=== PATIENT | male | born 1960 | race Caucasian/White ===

== ENCOUNTER 2020-01-29 23:10 | Observation (INO) | payer OTHER, SELFPAY ==
[2020-01-30] MEDS ORDERED: MORPHINE 4 MG/ML SYR ONE (00:38)
[2020-01-30 00:41] LABS: Absolute Lymphocytes (CBC) 1.8 K/uL (0.7-4.9); Basophils % 0.4 % (0-1.3); Hematocrit 46.9 % (39.6-49.0); Lymphocytes % 26.9 % (15.3-44.8); MPV 8.2 fL (7.6-11.3); RBC Red Blood Cell Count 5.19 M/uL (4.33-5.43)
[2020-01-30 00:55] LABS: Protime INR 1.03
[2020-01-30 01:07] LABS: ALT/SGPT 83 U/L (12-78); AST/SGOT 40 U/L (15-37); Albumin 3.6 g/dL (3.4-5.0); Alkaline Phosphatase 100 U/L (45-117); BUN Blood Urea Nitrogen 17 mg/dL (7-18); Bicarbonate 24 mmol/L (21-32); Bilirubin Direct 0.2 mg/dL (0-0.2); Bilirubin Total 0.6 mg/dL (0.2-1.0); Glucose Level 97 mg/dL (74-106); Magnesium 2.3 mg/dL (1.8-2.4); NT PRO-BNP 25 pg/mL (<125); Sodium Level 140 mmol/L (136-145); Troponin (Emerg Dept Use Only) < 0.02 ng/mL (0.0-0.045)
[2020-01-30] MEDS ORDERED: ACETAMINOPHEN 500 MG TAB PO PRN (03:01)
[2020-01-30] MEDS ORDERED: MORPHINE 4 MG/ML SYR IV PRN (03:01)
[2020-01-30] MEDS ORDERED: ALPRAZOLAM 0.25 MG TABLET PO PRN (03:01)
[2020-01-30] MEDS ORDERED: METOPROLOL TAR 50 MG TAB PO SCH (06:00)
[2020-01-30 06:35] LABS: HDL Cholesterol 47 mg/dL (40-60); LDL Cholesterol, Calculated 92 (<130); Troponin I < 0.02 ng/mL (0.0-0.045)
[2020-01-30] MEDS ORDERED: METOPROLOL TAR 25 MG TAB ONE (06:39)
[2020-01-30 07:50] VITALS: O2SAT 100; BMI 49.7
[2020-01-30 07:52] VITALS: BP 126/65
[2020-01-30] MEDS ORDERED: ASPIRIN EC 81 MG TAB PO ONE ×2 (08:31→08:38)
[2020-01-30] MEDS ORDERED: ENOXAPARIN 40 MG/0.4 ML SQ ONE (08:33)
--- NOTE | 2020-01-30 08:39 | EKG ---
Test Date: 2020-01-29 Test Time: 23:25:47 Associate Professor Of Art: JAYLENE MEASUREMENT RESULTS: Intervals: Rate: 78 MN: 172 QRSD: 86 QT: 360 QTc: 410 [place]: P: 37 MN: 172 QRS: 53 T: 48 INTERPRETIVE STATEMENTS: Normal sinus rhythm Low voltage QRS Cannot rule out Anterior infarct, age undetermined Abnormal ECG Compared to ECG 03/02/2015 13:47:31 Low QRS voltage now present Myocardial infarct finding now present Electronically Signed On 01-30-20 08:38:27 CDT by Girish Molina
[2020-01-30] MEDS ORDERED: ENOXAPARIN 40 MG/0.4 ML SQ SCH (09:00)
[2020-01-30] MEDS ORDERED: ASPIRIN EC 81 MG TAB PO SCH (09:00)
--- NOTE | 2020-01-30 10:43 | P.SSS ---
Patient History Date of Service: 01/31/20 Reason for admission: CP R/O ACS History of Present Illness: Patient is a 59-year-old gentleman who came to the hospital with chest discomfort. Pain was mainly in the sternal region. Patient also has some dyspnea. Patient has a history of obstructive sleep apnea. Patient denies any nausea or vomiting. Patient denies any diaphoresis. Patient has some pain on deep inspiration. Patient denies any reflux. Patient will be admitted to the hospital for further evaluation. Will get cardiac evaluation. Will do serial troponins and EKG. Further evaluation per Cardiology recommendations. Allergies Penicillins Allergy (Mild, Verified 01/30/20 06:17) Hives Home Medications: Aspirin [Ecotrin 81 MG] 81 mg PO DAILY #30 tablet.dr 01/30/20 Atorvastatin Calcium [Lipitor] 40 mg PO DAILY #30 tablet 01/30/20 Azithromycin [Zithromax] 250 mg PO ZPAK #1 annabelle 01/30/20 Prednisone [Sterapred Ds] 10 mg PO DAILY #1 tab.ds.pk 01/30/20 - Past Medical/Surgical History Has patient received pneumonia vaccine in the past: No Diabetic: No -: Kidney cancer (has had kidney removed) -: kidney removal - Family History Family History: Reviewed- Non-Contributory - Social History Smoking Status: Never smoker Alcohol use: No CD- Drugs: No Caffeine use: No Place of Residence: Home Review of Systems 10-point ROS is otherwise unremarkable Physical Examination - Vital Signs Temperature: 99 F Blood Pressure: 126/65 Pulse: 62 Respirations: 18 Pulse Ox (%): 100 - Physical Exam General: Alert, In no apparent distress, Oriented x3, Obese HEENT: Atraumatic, PERRLA, Mucous membr. moist/pink, EOMI, Sclerae nonicteric Neck: Supple, 2+ carotid pulse no bruit, No LAD, Without JVD or thyroid abnormality Respiratory: Clear to auscultation bilaterally, Normal air movement Cardiovascular: Regular rate/rhythm, Normal S1 S2, No murmurs Gastrointestinal: Normal bowel sounds, Soft and benign, Non-distended, No tenderness Musculoskeletal: No clubbing, No swelling, No tenderness Integumentary: No rashes Neurological: Normal gait, Normal speech, Normal strength at 5/5 x4 extr, Normal tone, Sensation intact, Cranial nerves 3-12 intact, Normal affect Lymphatics: No axilla or inguinal lymphadenopathy - Studies Laboratory Data (last 24 hrs) 01/30/20 00:28: PT 12.1, INR 1.03 01/30/20 00:28: WBC 6.8, Hgb 16.1, Hct 46.9, Plt Count 145 L 01/30/20 00:28: Sodium 140, Potassium 4.0, BUN 17, Creatinine 1.15, Glucose 97, Magnesium 2.3, Total Bilirubin 0.6, AST 40 H, ALT 83 H, Alkaline Phosphatase 100 Treatment Summary: Patient troponins and EKG have been unremarkable. Patient was seen by Cardiology and outpatient follow-up was recommended. It was felt patient may have some upper respiratory symptoms with some pain on inspiration related to of pleuritic chest pain. Chest x-ray has been unremarkable. Continue with steroids and anti-inflammatories. Also will give antibiotic for possible bronchitis. Patient would need outpatient stress test and echocardiogram. At this time patient is stable for discharge home with outpatient follow-up. - Disposition Discharge Date: 01/30/20 Disposition: ROUTINE DISCHARGE Condition: GOOD Patient Discharge Instructions: OK TO DC IV AND DC HOME. please call in prescriptions to pharmacy. FOLLOW-UP WITH PRIMARY CARE PROVIDER IN 1-2 WEEKS. FOLLOW-UP WITH CARDIOLOGY IN 1-2 WEEKS. RETURN TO THE ER IF symptoms worsens. CALL DR. ZAMBRANO AT [phone] IF ANY QUESTIONS REGARDING HOSPITAL STAY. PLEASE CALL THE FLOOR AT [phone] IF ANY MEDICATION OR NURSING QUESTIONS. Diet: AHA Activity: Fall precautions Critical Care: No Time Spent Managing Pts Care (In Minutes): 45
--- NOTE | 2020-01-30 11:02 | RAD REPORT ---
EXAM DESCRIPTION: RAD - Chest Single View - 01/30/2020 12:14 am CLINICAL HISTORY: CHEST PAIN Chest pain. COMPARISON: Abdomen 1 View (KUB) dated 02/10/2018; CHEST PA AND LAT 2 VIEW dated 01/30/2015; ABDOMEN 1 VIEW KUB dated 08/24/2014; CHEST PA AND LAT 2 VIEW dated 06/06/2014 FINDINGS: Portable technique limits examination quality. The lungs are mildly underinflated but grossly clear. The heart is mildly enlarged in size. No displa kimberly fractures. IMPRESSION: No acute intrathoracic process suspected.
--- NOTE | 2020-01-30 11:11 | ER ---
Nurse's Notes [facility] Name: Domo Castro Age: 59 yrs Sex: Male : 1960 Arrival Date: 01/29/2020 Time: 23:15 Bed 25 Private MD: Diagnosis: Chest pain, unspecified Presentation: 01/28 23:24 Chief complaint: Chief complaint: Patient states: Left upper back pain that radiates ll1 into left shoulder intermittently for 2 days. Reports shocking jolt of pain at times. Notices pain with deep breathing. Cough lingering on since September. No fever. Also, left ear pain and swelling for 1 week. 23:25 Coronavirus screen: Proceed with normal triage. Patient reports a cough. Patient denies ll1 shortness of breath or difficulty breathing. Patient denies measured and/or subjective temperature greater than 100.4F prior to today's visit. Patient denies travel on a cruise ship or to a country the [facility] currently lists as an affected area. Patient denies contact with known and/or suspected case of COVID-19. Ebola Screen: Patient denies travel to an Ebola-affected area in the 21 days before illness onset. Initial Sepsis Screen: Does the patient meet any 2 criteria? No. Patient's initial sepsis screen is negative. Does the patient have a suspected source of infection? No. Patient's initial sepsis screen is negative. Risk Assessment: Do you want to hurt yourself or someone else? Patient reports no desire to harm self or others. Onset of symptoms was January 27, 2020. 23:25 Method Of Arrival: Ambulatory ll1 23:25 Acuity: ADOLPH 3 ll1 Historical: - Allergies: 23:28 PENICILLINS; ll1 - PMHx: 23:28 kidney CA-kidney removed; ll1 - Immunization history:: Adult Immunizations up to date. - Social history:: Smoking status: Patient denies any tobacco usage or history of. Patient uses alcohol, but reports only rare drinking. only on a social basis. Patient/guardian denies using street drugs. - Family history:: Mother has/had heart disease. Screenin/10 00:00 Abuse screen: Denies threats or abuse. Nutritional screening: No deficits noted. lp1 Tuberculosis screening: No symptoms or risk factors identified. Fall Risk None identified. Assessment: 01/28 23:30 General: Appears in no apparent distress. uncomfortable, Behavior is calm, cooperative, lp1 appropriate for age. Pain: Complains of pain in left clavicle and anterior aspect of left upper chest Pain radiates to anterior aspect of left shoulder Quality of pain is described as shooting, Pain began 2-3 days ago. Pain: Aggravated by deep breathing. Neuro: Neuro: Level of Consciousness is awake, alert, obeys commands, Oriented to person, place, time, situation. Cardiovascular: Denies lightheadedness, nausea, palpitations, Patient's skin is warm and dry. Rhythm is sinus rhythm. Respiratory: Airway is patent Respiratory effort is even, unlabored, Respiratory pattern is regular, symmetrical. GI: No signs and/or symptoms were reported involving the gastrointestinal system. : No signs and/or symptoms were reported regarding the genitourinary system. Derm: Skin is pink, warm \T\ dry. Vital Signs: 23:25 BP 159 / 94; Pulse 83; Resp 19; Temp 97.2; Pulse Ox 100% ; Pain 0/10; ll1 01/29 00:51 BP 153 / 76; Pulse 72; Resp 18; Pulse Ox 99% on R/A; tl2 03:00 BP 139 / 80; Pulse 75; Resp 18; Pulse Ox 99% on R/A; lp1 04:51 BP 132 / 78; Pulse 72; Resp 18; Pulse Ox 99% on R/A; lp1 07:06 BP 126 / 65; Pulse 74; Resp 18; Pulse Ox 100% on CPAP; 4 ED Course: 01/28 23:15 Patient arrived in ED. cf2 23:21 German Tolbert MD is Attending Physician. mh7 23:27 Triage completed. ll1 23:28 Arm band placed on Patient placed in an exam room, on a stretcher. ll1 01/29 00:00 Patient has correct armband on for positive identification. Placed in gown. Bed in low lp1 position. Call light in reach. Side rails up X 1. threat monitoring analyst on. Pulse ox on. NIBP on. 00:00 No provider procedures requiring assistance completed. Patient maintains SpO2 lp1 saturation greater than 95% on room air. 00:05 Inserted saline lock: 20 gauge in right upper arm, using aseptic technique. placed by oanh Richey RN. 00:14 XRAY Chest (1 view) In Process Unspecified. EDMS 00:50 Mame Nath, RN is Primary Nurse. tl2 01:55 Fidel Lott MD is Hospitalizing Provider. [facility] Administered Medications: 00:50 Drug: morphine 4 mg Route: IVP; Site: right upper arm; tl2 01:40 Follow up: Response: No adverse reaction; Pain is decreased; RASS: Alert and Calm (0) lp1 Outcome: 01:56 Decision to Hospitalize by Provider. 7 05:00 Admitted to ER Hold. Please see [facility] for further documentation. lp1 05:00 Condition: stable 11:10 Patient left the ED. Signatures: Dispatcher [employer] EDMS Norma Caal RN RN 1 Roxanna Walker RN RN Mame Nath RN RN tl2 Oamyra Girard 2 Thanh Silverman 4 Basilia Mai RN RN 1 German Tolbert MD MD [facility] Corrections: (The following items were deleted from the chart) 01/28 23:27 23:24 Chief complaint: ll1 ll1 23:29 23:24 Chief complaint: Patient states: Left upper back pain that radiates into left ll1 shoulder intermittently for 2 days. Reports shocking jolt of pain at times. Notices pain with deep breathing. Cough lingering on since September. No fever. Chief complaint: Patient states: Left upper back pain that radiates into left shoulder intermittently for 2 days. Reports shocking jolt of pain at times. Notices pain with deep breathing. Cough lingering on since September. No fever. ll1
--- NOTE | 2020-01-30 11:11 | EDPHYS ---
Physician Documentation [facility] Name: Domo Castro Age: 59 yrs Sex: Male : 1960 Arrival Date: 01/29/2020 Time: 23:15 Bed 25 Private MD: ED Physician German Tolbert HPI: 01/28 23:37 This 59 yrs old Male presents to ER via Ambulatory with complaints of mh7 Shoulder Pain, Back Pain. 23:38 This 59 yrs old Male presents to ER via Ambulatory with complaints of Back mh7 pain, Chest pain. 23:38 The patient or guardian reports chest pain that is located primarily in the anterior mh7 chest wall, left. Onset: yesterday. The pain radiates to left back. Associated signs and symptoms: Pertinent positives: shortness of breath, Pertinent negatives: abdominal pain, cough, diaphoresis, dizziness, headache, lower extremity pain, lower extremity swelling, lightheadedness, nausea, near syncope, palpitations, recent travel, syncope, vomiting. The chest pain is described as stabbing. Duration: The patient or guardian reports multiple episodes, that are intermittent, that wax and wane. Modifying factors: The symptoms are alleviated by nothing. the symptoms are aggravated by nothing. Severity of pain: At its worst the pain was moderate today, in the emergency department the pain is unchanged. Historical: - Allergies: 23:28 PENICILLINS; ll1 - PMHx: 23:28 kidney CA-kidney removed; ll1 - Immunization history:: Adult Immunizations up to date. - Social history:: Smoking status: Patient denies any tobacco usage or history of. Patient uses alcohol, but reports only rare drinking. only on a social basis. Patient/guardian denies using street drugs. - Family history:: Mother has/had heart disease. ROS: 23:40 Constitutional: Negative for fever, chills, and weight loss, Eyes: Negative for injury, mh7 pain, redness, and discharge, ENT: Negative for injury, pain, and discharge, Neck: Negative for injury, pain, and swelling, Abdomen/GI: Negative for abdominal pain, nausea, vomiting, diarrhea, and constipation, : Negative for injury, bleeding, discharge, and swelling, MS/Extremity: Negative for injury and deformity, Skin: Negative for injury, rash, and discoloration, Neuro: Negative for headache, weakness, numbness, tingling, and seizure, Psych: Negative for depression, anxiety, suicide ideation, homicidal ideation, and hallucinations, Allergy/Immunology: Negative for hives, rash, and allergies, Endocrine: Negative for neck swelling, polydipsia, polyuria, polyphagia, and marked weight changes, Hematologic/Lymphatic: Negative for swollen nodes, abnormal bleeding, and unusual bruising. Exam: 23:40 Constitutional: This is a well developed, well nourished patient who is awake, alert, mh7 and in no acute distress. Head/Face: Normocephalic, atraumatic. Eyes: Pupils equal round and reactive to light, extra-ocular motions intact. Lids and lashes normal. Conjunctiva and sclera are non-icteric and not injected. Cornea within normal limits. Periorbital areas with no swelling, redness, or edema. ENT: Nares patent. No nasal discharge, no septal abnormalities noted. Tympanic membranes are normal and external auditory canals are clear. Oropharynx with no redness, swelling, or masses, exudates, or evidence of obstruction, uvula midline. Mucous membranes moist. Neck: Trachea midline, no thyromegaly or masses palpated, and no cervical lymphadenopathy. Supple, full range of motion without nuchal rigidity, or vertebral point tenderness. No Meningismus. Chest/axilla: Normal chest wall appearance and motion. Nontender with no deformity. No lesions are appreciated. Abdomen/GI: Soft, non-tender, with normal bowel sounds. No distension or tympany. No guarding or rebound. No evidence of tenderness throughout. Back: No spinal tenderness. No costovertebral tenderness. Full range of motion. Skin: Warm, dry with normal turgor. Normal color with no rashes, no lesions, and no evidence of cellulitis. Neuro: Awake and alert, GCS 15, oriented to person, place, time, and situation. Cranial nerves II-XII grossly intact. Motor strength 5/5 in all extremities. Sensory grossly intact. Cerebellar exam normal. Normal gait. 23:40 Cardiovascular: Rate: normal, Rhythm: regular, Pulses: no pulse deficits are appreciated, Heart sounds: normal, normal S1and S2, Edema: pedal edema, that is mild, JVD: is not appreciated. 23:40 ECG was reviewed by the Attending Physician. 23:40 Respiratory: the patient does not display signs of respiratory distress, Respirations: normal, Breath sounds: are clear throughout, Respiratory rate: Normal Vital Signs: 23:25 BP 159 / 94; Pulse 83; Resp 19; Temp 97.2; Pulse Ox 100% ; Pain 0/10; ll1 01/29 00:51 BP 153 / 76; Pulse 72; Resp 18; Pulse Ox 99% on R/A; tl2 03:00 BP 139 / 80; Pulse 75; Resp 18; Pulse Ox 99% on R/A; lp1 04:51 BP 132 / 78; Pulse 72; Resp 18; Pulse Ox 99% on R/A; lp1 07:06 BP 126 / 65; Pulse 74; Resp 18; Pulse Ox 100% on CPAP; dh4 MDM: 01/28 23:26 Patient medically screened. [facility] 01/29 01:56 Differential diagnosis: acute myocardial infarction, coronary artery disease chest wall [facility] pain, pneumonia, unstable angina. HEART Score: History: Moderately Suspicious (1), ECG: Non specific repolarization disturbance / LBTB / PM (1), Age: > 45 and < 65 years (1), Risk Factors: 1 or 2 risk factors (1), Troponin: < or = 1 x Normal Limit (0), Total Score = 4. Data reviewed: vital signs, nurses notes, lab test result(s), cardiac enzymes, troponin i, CBC, EKG, radiologic studies, plain films. Data interpreted: patient monitor: rate is 72 beats/min, rhythm is normal sinus rhythm, Pulse oximetry: on is 99 %. Interpretation: normal. ED course: Feels better, NAD, VSS, no focal neurological deficits. Currently no chest pain or SOB. Discussed all test results and admission for further care and evaluation. Discussed with and admitted to Dr. Lott.. 01/28 23:35 Order name: Basic Metabolic Panel; Complete Time: 01:42 [facility] 01/29 01:49 Interpretation: Within normal limits: GFR 65. [facility] 01/28 23:35 Order name: CBC with Diff; Complete Time: 00:46 [facility] 01/28 23:35 Order name: LFT's; Complete Time: 01:42 [facility] 01/28 23:35 Order name: Magnesium; Complete Time: 01:42 [facility] 01/28 23:35 Order name: NT PRO-BNP; Complete Time: 01:42 [facility] 01/28 23:35 Order name: PT-INR; Complete Time: 01:42 [facility] 01/28 23:35 Order name: Troponin (emerg Dept Use Only); Complete Time: 01:42 [facility] 01/29 03:05 Order name: Basic Metabolic Panel [facility] 01/29 03:05 Order name: Basic Metabolic Panel [facility] 01/29 03:05 Order name: CBC with Automated Diff [facility] 01/29 03:05 Order name: CBC with Automated Diff [facility] 01/29 03:05 Order name: Lipid Profile [facility] 01/29 03:05 Order name: Lipid Profile [facility] 01/29 03:05 Order name: Troponin I [facility] 01/28 23:35 Order name: XRAY Chest (1 view) [facility] 01/28 23:35 Order name: EKG; Complete Time: 23:36 [facility] 01/28 23:35 Order name: Cardiac monitoring; Complete Time: 23:54 [facility] 01/28 23:35 Order name: EKG - Nurse/Tech; Complete Time: 23:54 [facility] 01/28 23:35 Order name: IV Saline Lock; Complete Time: 00:28 [facility] 01/28 23:35 Order name: Labs collected and sent; Complete Time: 00:50 [facility] 01/28 23:35 Order name: O2 Per Protocol; Complete Time: 23:54 [facility] 01/28 23:35 Order name: O2 Sat Monitoring; Complete Time: 23:54 [facility] 01/29 03:05 Order name: CONS Physician Consult [facility] 01/29 03:05 Order name: Heart Healthy [facility] 01/29 03:05 Order name: Echo with Doppler [facility] 01/29 03:05 Order name: EKG Electrocardiogram [facility] 01/29 03:05 Order name: EKG Electrocardiogram [facility] 01/29 03:05 Order name: Troponin I [facility] 01/29 03:05 Order name: Troponin I [facility] EC/09 23:40 Rate is 78 beats/min. Rhythm is regular. QRS [place] is Normal. MD interval is normal. QRS mh7 interval is normal. QT interval is normal. No Q waves. T waves are Normal. Administered Medications: 01/29 00:50 Drug: morphine 4 mg Route: IVP; Site: right upper arm; tl2 01:40 Follow up: Response: No adverse reaction; Pain is decreased; RASS: Alert and Calm (0) lp1 Disposition: 07:02 Co-signature as Attending Physician, German Tolbert MD. 7 Disposition: 01/30/20 01:56 Hospitalization ordered by Fidel Lott for Observation. Preliminary diagnosis is Chest pain, unspecified. - Bed requested for [facility] ER HOLD. - Status is Observation. hb - Condition is Stable. - Problem is new. - Symptoms have improved. Signatures: Dispatcher [employer] EDMS Rossi Fajardo RN RN Norma Caal, RN RN lp1 Roxanna Walker, RN RN Mame Nath, RN RN tl2 Basilia Mai RN RN 1 German Tolbert MD MD 7 Corrections: (The following items were deleted from the chart) 01:50 01:49 Abnormal: GFR 65. [place] [id number] 03:14 01:56 Hospitalization Ordered by Fidel Lott MD for Observation. Preliminary mw diagnosis is Chest pain, unspecified. Bed requested for Telemetry/MedSurg (observation). Status is Observation. Condition is Stable. Problem is new. Symptoms have improved. [facility] 11:10 03:14 01/30/2020 01:56 Hospitalization Ordered by Fidel Lott MD for Observation. hb Preliminary diagnosis is Chest pain, unspecified. Bed requested for [facility] ER HOLD. Status is Observation. Condition is Stable. Problem is new. Symptoms have improved. mw
--- NOTE | 2020-01-30 17:20 | CON ---
Date of Consultation: 01/30/2020 Mr. Castro was admitted to Dr. Lott's service on 01/30/2020. I saw him on 01/30/2020. Reason For Consultation: Chest pain. History Of Present Illness: Mr. Castro is a 59-year-old male without any past medical history. He c nandini in with chest pain over the left lateral chest wall, radiating to the left arm, left back, left s houlder. It would last about a minute or 2. It was increasing with movement, increasing with breath ing. Denied any cough, PND, orthopnea, pedal edema, palpitations, or syncope. Denied any fever or c hills. Denied any nausea, vomiting, diaphoresis. He denied any palpitations or syncope. His workup has been negative so far. He had a normal EKG, normal x-ray, normal troponin. Past Medical History: Negative. Allergies: HE IS ALLERGIC TO PENICILLIN. Review of Systems: Negative. Medications: At home are none. Family History: Noncontributory. Social History: Noncontributory. Physical Examination: Vital Signs: Stable. He was afebrile. HEENT: Negative. Neck: Supple without any bruit, lymphadenopathy, JVD, or thyromegaly. Chest: Clear to auscultation and percussion. Cardiac: Revealed a regular rhythm and rate. No murmurs, gallops, or rubs. Abdomen: Obese, but benign. Extremities: Revealed no clubbing, cyanosis, or edema. Diagnostic Data: Normal. Impression And Plan: Mr. Castro is 59-year-old. His only risk factor for heart disease is obesity. His chest pain is atypical, most likely musculoskeletal or pleuritic or even related to cervical spo ndylosis. Nevertheless, I am comfortable with him going home. He is ruled out for a myocardial infa rction. I will make arrangements for him to have an outpatient stress test and an echocardiogram and I will see him then. TACOS/VANI Voice ID: [id number] Report ID: [id number]
[2020-01-31 04:22] VITALS: TEMP 99
== END 2020-01-30 11:09 | disposition home or self-care (01) ==
LOC: ER 23:10 → ERHOLD 01-30 03:16
PROVIDERS: ADMIT Hospitalist; ATTEND Hospitalist
DX: R07.89 Other chest pain (principal); R06.00 Dyspnea, unspecified; G47.33 Obstructive sleep apnea (adult) (pediatric); E66.9 Obesity, unspecified; Z68.42 Body mass index [BMI] 45.0-49.9, adult; Z85.528 Personal history of other malignant neoplasm of kidney; Z90.5 Acquired absence of kidney; Z88.0 Allergy status to penicillin; Z79.82 Long term (current) use of aspirin
CPT/HCPCS: 93005; 85025; 80048; 36415; 83735; 85610; 80061; 80076; 84484 ×2; 83880; 71045; 96374; 99285; J1650; G0378 ×2

== ENCOUNTER 2020-11-05 17:22 | Inpatient (IN) | payer OTHER ==
[2020-11-05] MEDS ORDERED: ALBUTEROL INHALER 60 PUFF/8 GM IH ONE (20:54)
--- NOTE | 2020-11-05 21:00 | RAD REPORT ---
EXAM DESCRIPTION: [facility] Single View11/05/2020 8:46 pm CLINICAL HISTORY: Shortness of breath COMPARISON: October 31, 2020 FINDINGS: Mild bilateral pulmonary opacities suspected. . The heart is borderline enlarged IMPRESSION: Mild bilateral pulmonary opacities suspected which may indicate a mild pneumonia
[2020-11-05 21:01] LABS: Absolute Lymphocytes (CBC) 0.8 K/uL (0.7-4.9); Basophils % 0.1 % (0-1.3); Hematocrit 43.2 % (39.6-49.0); Lymphocytes % 20.3 % (15.3-44.8); MPV 8.3 fL (7.6-11.3); Protime INR 1.11
[2020-11-05 21:18] LABS: ALT/SGPT 88 U/L (12-78); AST/SGOT 64 U/L (15-37); Albumin 3.5 g/dL (3.4-5.0); Alkaline Phosphatase 84 U/L (45-117); BUN Blood Urea Nitrogen 18 mg/dL (7-18); Bicarbonate 27 mmol/L (21-32); Bilirubin Direct 0.4 mg/dL (0-0.2); Glucose Level 107 mg/dL (74-106); Magnesium 2.1 mg/dL (1.8-2.4); NT PRO-BNP 12 pg/mL (<125); Potassium 3.6 mmol/L (3.5-5.1); Protein, Total 7.1 g/dL (6.4-8.2); Sodium Level 140 mmol/L (136-145); Troponin (Emerg Dept Use Only) < 0.02 ng/mL (0.0-0.045)
[2020-11-05] MEDS ORDERED: ACETAMINOPHEN 500 MG TAB ONE (22:30)
[2020-11-05] MEDS ORDERED: dexAMETHasone 4 MG/ML VIAL ONE (22:30)
[2020-11-05 22:56] LABS: Arterial Blood Carboxyhemoglob 2.4 % (0-1.5); Blood Gas Oxyhemoglobin 90.6 % (94-97); Blood O2 Saturation 93.8 % (92-98.5)
--- NOTE | 2020-11-06 00:01 | EDPHYS ---
Physician Documentation [facility] Name: Domo Castro Age: 60 yrs Sex: Male : 1960 Arrival Date: 11/05/2020 Time: 17:25 Bed 20 Private MD: ED Physician German Tolbert HPI: 11/05 20:18 This 60 yrs old Male presents to ER via Ambulatory with complaints of mh7 Breathing Difficulty, Covid+. 20:18 The patient has shortness of breath with light activity. Onset: The symptoms/episode mh7 began/occurred 4 day(s) ago. Duration: The symptoms are intermittent, with no pattern. The patient's shortness of breath is aggravated by coughing, exertion, light activity, is alleviated by nothing. Associated signs and symptoms: Pertinent positives: non-productive cough, fever, Pertinent negatives: chest pain, productive cough, diaphoresis, dizziness, hemoptysis, loss of consciousness, nausea, numbness in extremities, visual changes, vomiting. Severity of symptoms: At their worst the symptoms were moderate yesterday, in the emergency department the symptoms are unchanged. Reports that he tested positive for COVID about 6 days ago. Historical: - Allergies: 17:54 PENICILLINS; ll1 - Home Meds: 19:34 None [Active]; sf - PMHx: 17:54 kidney CA-kidney removed; ll1 - PSHx: 17:54 Appendectomy; L kidney removed; ll1 - Immunization history:: Flu vaccine is not up to date. - Social history:: Smoking status: Patient denies any tobacco usage or history of. ROS: 20:18 Eyes: Negative for injury, pain, redness, and discharge, ENT: Negative for injury, mh7 pain, and discharge, Neck: Negative for injury, pain, and swelling, Cardiovascular: Negative for chest pain, palpitations, and edema, Abdomen/GI: Negative for abdominal pain, nausea, vomiting, diarrhea, and constipation, Back: Negative for injury and pain, : Negative for injury, bleeding, discharge, and swelling, MS/Extremity: Negative for injury and deformity, Skin: Negative for injury, rash, and discoloration, Neuro: Negative for headache, weakness, numbness, tingling, and seizure, Psych: Negative for depression, anxiety, suicide ideation, homicidal ideation, and hallucinations, Allergy/Immunology: Negative for hives, rash, and allergies, Endocrine: Negative for neck swelling, polydipsia, polyuria, polyphagia, and marked weight changes, Hematologic/Lymphatic: Negative for swollen nodes, abnormal bleeding, and unusual bruising. Exam: 20:18 Constitutional: This is a well developed, well nourished patient who is awake, alert, mh7 and in no acute distress. Head/Face: Normocephalic, atraumatic. Eyes: Pupils equal round and reactive to light, extra-ocular motions intact. Lids and lashes normal. Conjunctiva and sclera are non-icteric and not injected. Cornea within normal limits. Periorbital areas with no swelling, redness, or edema. Neck: Trachea midline, no thyromegaly or masses palpated, and no cervical lymphadenopathy. Supple, full range of motion without nuchal rigidity, or vertebral point tenderness. No Meningismus. Chest/axilla: Normal chest wall appearance and motion. Nontender with no deformity. No lesions are appreciated. Cardiovascular: Regular rate and rhythm with a normal S1 and S2. No gallops, murmurs, or rubs. Normal PMI, no JVD. No pulse deficits. 20:18 Abdomen/GI: Soft, non-tender, with normal bowel sounds. No distension or tympany. No guarding or rebound. No evidence of tenderness throughout. Back: No spinal tenderness. No costovertebral tenderness. Full range of motion. Skin: Warm, dry with normal turgor. Normal color with no rashes, no lesions, and no evidence of cellulitis. MS/ Extremity: Pulses equal, no cyanosis. Neurovascular intact. Full, normal range of motion. Neuro: Awake and alert, GCS 15, oriented to person, place, time, and situation. Cranial nerves II-XII grossly intact. Motor strength 5/5 in all extremities. Sensory grossly intact. Cerebellar exam normal. Normal gait. Psych: Awake, alert, with orientation to person, place and time. Behavior, mood, and affect are within normal limits. 20:18 Respiratory: the patient does not display signs of respiratory distress, Respirations: prolonged exhalation, that is mild, tachypnea, that is mild, Breath sounds: bronchial sounds, that are mild, are scattered, rhonchi, that are mild, are scattered, Respiratory rate: 22 Vital Signs: 17:54 BP 147 / 76; Pulse 100; Resp 22; Temp 100.1; Pulse Ox 95% on R/A; Weight 143.79 kg; ll1 Height 5 ft. 8 in. (172.72 cm); Pain 0/10; 22:09 BP 132 / 63; Pulse 99; Resp 30; Pulse Ox 95% ; sf 22:19 Pulse 123; Pulse Ox 95% on R/A; jp3 22:30 BP 134 / 83; Pulse 110; Resp 30; Pulse Ox 95% ; sf 23:00 BP 140 / 79; Pulse 99; Pulse Ox 95% ; sf 23:30 BP 122 / 68; Pulse 110; Pulse Ox 96% ; sf 02 00:00 BP 125 / 70; Pulse 91; Resp 28; Pulse Ox 98% ; sf 00:35 Temp 101(A); sf 11/05 17:54 Body Mass Index 48.20 (143.79 kg, 172.72 cm) ll1 11/05 22:19 ambulated patient around nurses station with portable SP02. jp3 MDM: 23:58 Differential diagnosis: Anemia Anxiety Reaction asthma, Bronchitis CHF exacerbation, [facility] Chronic Obstructive Pulmonary Disease Myocardial Infarction pneumonia, Pneumothorax Psychogenic pulmonary edema, reactive airway disease. Data reviewed: vital signs, nurses notes, lab test result(s), cardiac enzymes, CBC, drug level(s), electrolytes, urinalysis, EKG, radiologic studies, plain films. Data interpreted: Pulse oximetry: on 2L(s) per nasal canula, is 95 %. Interpretation: normal. Counseling: I had a detailed discussion with the patient and/or guardian regarding: the historical points, exam findings, and any diagnostic results supporting the discharge/admit diagnosis, lab results, radiology results, the need for further work-up and treatment in the hospital. Response to treatment: the patient's symptoms have mildly improved after treatment. 23:59 Patient medically screened. [facility] 11/05 19:44 Order name: Basic Metabolic Panel [facility] 11/05 19:44 Order name: CBC with Diff [facility] 11/05 19:44 Order name: LFT's [facility] 11/05 19:44 Order name: Magnesium [facility] 11/05 19:44 Order name: NT PRO-BNP [facility] 11/05 19:44 Order name: PT-INR [facility] 11/05 19:44 Order name: Troponin (emerg Dept Use Only) [facility] 11/05 21:04 Order name: CBC with Automated Diff; Complete Time: 21:04 [facility] 11/05 21:15 Order name: Protime (+INR); Complete Time: 21:30 [facility] 11/05 21:18 Order name: Basic Metabolic Panel; Complete Time: 21:30 [facility] 11/05 21:18 Order name: Liver (Hepatic) Function; Complete Time: 21:30 [facility] 11/05 21:18 Order name: Troponin (Emerg Dept Use Only); Complete Time: 21:30 [facility] 11/05 21:18 Order name: NT PRO-BNP; Complete Time: 21:30 [facility] 11/05 21:18 Order name: Magnesium; Complete Time: 21:30 [facility] 11/05 19:44 Order name: XRAY Chest (1 view) [facility] 11/05 19:44 Order name: EKG; Complete Time: 19:45 [facility] 11/05 19:44 Order name: Cardiac monitoring; Complete Time: 19:58 [facility] 11/05 19:44 Order name: EKG - Nurse/Tech; Complete Time: 20:57 [facility] 11/05 21:01 Order name: RAD; Complete Time: 21:04 [facility] 11/05 21:47 Order name: Blood Culture Adult (2) [facility] 11/05 21:47 Order name: Lactate [facility] 11/05 22:22 Order name: Arterial Blood Gas [facility] 11/05 22:57 Order name: ABG Arterial Blood Gas; Complete Time: 23:23 [facility] 11/05 23:10 Order name: Lactate; Complete Time: 23:23 [facility] 11/06 01:50 Order name: Troponin I [facility] 11/06 03:18 Order name: Lactate Sepsis 2 HR Follow-up [facility] 11/06 05:50 Order name: Troponin I [facility] 11/05 19:44 Order name: IV Saline Lock; Complete Time: 20:57 [facility] 11/05 19:44 Order name: Labs collected and sent; Complete Time: 20:58 [facility] 11/05 19:44 Order name: O2 Per Protocol; Complete Time: 19:58 [facility] 11/05 19:44 Order name: O2 Sat Monitoring; Complete Time: 19:58 7 Administered Medications: 20:47 Drug: Albuterol HFA Inhaler 2 puffs Route: Inhalation; 21:32 Follow up: Response: No adverse reaction 22:23 Drug: Tylenol 1000 mg Route: PO; 11/06 00:40 Follow up: Response: No adverse reaction 11/05 22:23 Drug: Decadron - Dexamethasone 6 mg Route: IVP; Site: right forearm; 11/06 00:40 Follow up: Response: No adverse reaction; Other sf Disposition: 11/05/20 23:59 Hospitalization ordered by [facility] for Inpatient Admission. Preliminary diagnosis are COVID Pneumonia, Hypoxia. - Bed requested for Telemetry/MedSurg (Inpatient). - Status is Inpatient Admission. ss - Condition is Stable. - Problem is new. - Symptoms have improved. Signatures: Dispatcher [employer] EDMS Rossi Fajardo RN RN Nohemi Robbins RN RN dw Smirch, Shelby, RN RN ss Lewis, Lynsay, RN RN [facility] German Tolbert MD MD [facility] Murphy Mane RN RN sf Corrections: (The following items were deleted from the chart) 00:17 11/05 23:59 Hospitalization Ordered by [facility] MD for Inpatient Admission. Preliminary diagnosis is COVID Pneumonia; Hypoxia. Bed requested for Telemetry/MedSurg (Inpatient). Status is Inpatient Admission. Condition is Stable. Problem is new. Symptoms have improved. [facility] 11/06 07:06 00:17 11/05/2020 23:59 Hospitalization Ordered by [facility] MD for Inpatient dw Admission. Preliminary diagnosis is COVID Pneumonia; Hypoxia. Bed requested for [facility] ER HOLD. Status is Inpatient Admission. Condition is Stable. Problem is new. Symptoms have improved. 08:12 07:06 11/05/2020 23:59 Hospitalization Ordered by [facility] MD for Inpatient ss Admission. Preliminary diagnosis is COVID Pneumonia; Hypoxia. Bed requested for Telemetry/MedSurg (Inpatient). Status is Inpatient Admission. Condition is Stable. Problem is new. Symptoms have improved.
--- NOTE | 2020-11-06 00:01 | ER ---
Nurse's Notes [facility] Name: Domo Castro Age: 60 yrs Sex: Male : 1960 Arrival Date: 11/05/2020 Time: 17:25 Bed 20 Private MD: Diagnosis: COVID Pneumonia;Hypoxia Presentation: 11/05 17:54 Chief complaint: Patient states: SOB for 4 days. Covid positive for 6 days. No fever. ll1 Coronavirus screen: Client denies travel out of the [place] in the last 14 days. congestion, cough unrelated to allergies, difficulty breathing, fatigue, shortness of breath, Client presents with at least one sign or symptom that may indicate coronavirus-19. Standard/surgical mask placed on the client. Ebola Screen: Patient denies travel to an Ebola-affected area in the 21 days before illness onset. Initial Sepsis Screen: Does the patient meet any 2 criteria? RR > 20 per min. HR > 90 bpm. No. Patient's initial sepsis screen is negative. Does the patient have a suspected source of infection? Yes: Productive cough/pneumonia. Risk Assessment: Do you want to hurt yourself or someone else? Patient reports no desire to harm self or others. Onset of symptoms was November 01, 2020. 17:54 Method Of Arrival: Ambulatory ll1 17:54 Acuity: ADOLPH 3 ll1 Triage Assessment: 19:31 Respiratory: Onset: The symptoms/episode began/occurred gradually, the patient has sf moderate shortness of breath. Historical: - Allergies: 17:54 PENICILLINS; ll1 - Home Meds: 19:34 None [Active]; sf - PMHx: 17:54 kidney CA-kidney removed; ll1 - PSHx: 17:54 Appendectomy; L kidney removed; ll1 - Immunization history:: Flu vaccine is not up to date. - Social history:: Smoking status: Patient denies any tobacco usage or history of. Screenin:35 Abuse screen: Denies threats or abuse. Denies injuries from another. Nutritional sf screening: No deficits noted. Tuberculosis screening: No symptoms or risk factors identified. Never had TB. Possible symptoms: None Risk factors: None. Fall Risk None identified. No fall in past 12 months (0 pts). No secondary diagnosis (0 pts). IV access (20 points). Ambulatory Aid- None/Bed Rest/Nurse Assist (0 pts). Gait- Normal/Bed Rest/Wheelchair (0 pts) Mental Status- Oriented to own ability (0 pts). Total Vega Fall Scale indicates No Risk (0-24 pts). Assessment: 19:31 General: Appears in no apparent distress. obese, well groomed, well developed, Behavior sf is calm, cooperative. Pain: Denies pain. Neuro: No deficits noted. Level of Consciousness is awake, alert, obeys commands, Oriented to person, place, time, situation, Appropriate for age. Cardiovascular: Denies chest pain, Patient's skin is warm and dry. Edema is 1+ to left midcalf, left ankle, right midcalf and right ankle Rhythm is sinus tachycardia. Respiratory: Reports shortness of breath at rest on exertion cough that is non-productive, dry, persistent labored breathing Airway is patent Respiratory effort is unlabored, Respiratory pattern is tachypnea Breath sounds are clear. 22:04 Reassessment: Patient appears in no apparent distress at this time. Patient and/or sf family updated on plan of care and expected duration. Pain level reassessed. Patient appears more relaxed, breathing more even and less labored. 11/06 00:39 Reassessment: Patient appears in no apparent distress at this time. Patient and/or sf family updated on plan of care and expected duration. Pain level reassessed. Patient reports feeling better after decadron and bipap. Respiratory: Patient placed CPAP:. Vital Signs: 11/05 17:54 BP 147 / 76; Pulse 100; Resp 22; Temp 100.1; Pulse Ox 95% on R/A; Weight 143.79 kg; ll1 Height 5 ft. 8 in. (172.72 cm); Pain 0/10; 22:09 BP 132 / 63; Pulse 99; Resp 30; Pulse Ox 95% ; sf 22:19 Pulse 123; Pulse Ox 95% on R/A; jp3 22:30 BP 134 / 83; Pulse 110; Resp 30; Pulse Ox 95% ; sf 23:00 BP 140 / 79; Pulse 99; Pulse Ox 95% ; sf 23:30 BP 122 / 68; Pulse 110; Pulse Ox 96% ; sf 11/06 00:00 BP 125 / 70; Pulse 91; Resp 28; Pulse Ox 98% ; sf 00:35 Temp 101(A); sf 11/05 17:54 Body Mass Index 48.20 (143.79 kg, 172.72 cm) 1 02 22:19 ambulated patient around nurses station with portable SP02. jp3 ED Course: 17:25 Patient arrived in ED. rg4 17:53 Arm band placed on. ll1 17:57 Triage completed. 1 19:15 German Tolbert MD is Attending Physician. [facility] [place] 19:23 Murphy Mane, LAURA is Primary Nurse. sf 19:34 Patient has correct armband on for positive identification. Placed in gown. Bed in low sf position. Call light in reach. Side rails up X 1. monitoring manager on. Pulse ox on. NIBP on. Door closed. Noise minimized. Lights dimmed. Verbal reassurance given. 20:00 Missed attempt(s): 20 gauge in left antecubital area. Bleeding controlled, band aid jp3 applied, catheter tip intact. 20:10 Missed attempt(s): 24 gauge in right upper arm. Bleeding controlled, band aid applied, jp3 catheter tip intact. Patient maintains SpO2 saturation greater than 95% on room air. 20:39 Initial lab(s) drawn, by ED staff, sent to lab. Inserted saline lock: 18 gauge in right sf forearm, using aseptic technique. ,using aseptic technique. with ultrasound guidance by LAURA Lamas. 20:40 X-ray(s) taken. sf 20:45 EKG done, by ED staff, reviewed by German Tolbert MD. jp3 22:20 First set of blood cultures drawn by pr. sf 22:25 Second set of blood cultures drawn by me. sf 22:30 Lactate Sent. sf 22:30 Blood Culture Adult (2) Sent. sf 23:52 Arterial Blood Gas Sent. sf 23:59 [facility] MD is Hospitalizing Provider. [facility] [place] 11/06 00:30 No provider procedures requiring assistance completed. Patient admitted, IV remains in sf place. 07:20 Primary Nurse role handed off by Murphy Mane, LAURA bd Administered Medications: 11/05 20:47 Drug: Albuterol HFA Inhaler 2 puffs Route: Inhalation; 21:32 Follow up: Response: No adverse reaction 22:23 Drug: Tylenol 1000 mg Route: PO; 11/06 00:40 Follow up: Response: No adverse reaction 11/05 22:23 Drug: Decadron - Dexamethasone 6 mg Route: IVP; Site: right forearm; sf 11/06 00:40 Follow up: Response: No adverse reaction; Other sf Outcome: 11/05 23:59 Decision to Hospitalize by Provider. mh7 11/06 00:30 Admitted to ER Hold. Please see [facility] for further documentation. sf Condition: stable 08:12 Patient left the ED. Signatures: Brittny Lion Shelby, RN RN Claire Tejeda 4 Adalid Tejada jp3 Basilia Mai RN RN 1 German Tolbert MD MD 7 Murphy Mane RN RN sf Corrections: (The following items were deleted from the chart) 11/05 20:56 20:56 EKG done, jp3 jp3 20:57 20:56 EKG done, by ED staff, reviewed by German Tolbert MD jp3 jp3
[2020-11-06] MEDS ORDERED: ACETAMINOPHEN 500 MG TAB PO PRN (00:22)
[2020-11-06] MEDS ORDERED: ALBUTEROL 2.5 MG/3 ML NEB SOL NEB PRN (00:22)
[2020-11-06] MEDS ORDERED: ONDANSETRON 4 MG/2 ML VIAL IV PRN (00:22)
[2020-11-06] MEDS ORDERED: MORPHINE 2 MG/ML SYR IV PRN (00:22)
[2020-11-06] MEDS ORDERED: Oxycodone HCl/Acetaminophen 1 TAB TAB PO PRN (00:27)
[2020-11-06] MEDS ORDERED: HYDRALAZINE HCL 20 MG/ML VIAL IV PRN (00:27)
--- NOTE | 2020-11-06 00:39 | P.HP ---
Certification for Inpatient Patient admitted to: Observation With expected LOS: <2 Midnights Patient will require the following post-hospital care: None Practitioner: I am a practitioner with admitting privileges, knowledge of patient current condition, hospital course, and medical plan of care. Services: Services provided to patient in accordance with Admission requirements found in Title 42 Section 412.3 of the Code of Federal Regulations Patient History Date of Service: 11/06/20 Reason for admission: Shortness of breath History of Present Illness: 60-year-old male with past medical history of obstructive sleep apnea on nocturnal CPAP use, recently diagnosed with covid infection 1 week ago and on p.o. prednisone wheezes trauma as admitted for worsening cough, shortness of breath initially at around says/from better at rest with intermittent fever and chills. He denies any nausea or vomiting. On admission on arrival in the ED he was noted with elevated temp of 100.2 as well as hypoxia with O2 sat of 80 now on room air. Chest x-ray shows mild bilateral interstitial infiltrates consistent with pneumonia. Patient is be admitted for covid pneumonia with hypoxia. Allergies Penicillins Allergy (Mild, Verified 01/30/20 06:17) Hives Home Medications: Aspirin [Ecotrin 81 MG] 81 mg PO DAILY #30 tablet. 01/30/20 Atorvastatin Calcium [Lipitor] 40 mg PO DAILY #30 tablet 01/30/20 Azithromycin [Zithromax] 250 mg PO ZPAK #1 annabelle 01/30/20 Prednisone [Sterapred Ds] 10 mg PO DAILY #1 tab.ds.pk 01/30/20 - Past Medical/Surgical History Has patient received pneumonia vaccine in the past: No Diabetic: No -: Kidney cancer (has had kidney removed) -: kidney removal - Social History Smoking Status: Never smoker Alcohol use: No CD- Drugs: No Caffeine use: No Place of Residence: Home Review of Systems 10-point ROS is otherwise unremarkable Physical Examination - Physical Exam General: Alert, Oriented x3, Cooperative HEENT: Atraumatic, Normocephalic, PERRLA Neck: Supple, 2+ carotid pulse no bruit, JVD not distended Respiratory: Normal air movement, Diminished Cardiovascular: No edema, Normal pulses, Regular rate/rhythm, Normal S1 S2 Gastrointestinal: Normal bowel sounds, Soft and benign, Non-distended, No tenderness Musculoskeletal: No clubbing, No swelling Integumentary: No rashes, No breakdown, No significant lesion External genitalia: No edema, No lesions - Studies Laboratory Data (last 24 hrs) 11/05/20 20:35: PT 12.8 H, INR 1.11 11/05/20 20:35: WBC 4.00 L, Hgb 14.8, Hct 43.2, Plt Count 111 L 11/05/20 20:35: Sodium 140, Potassium 3.6, BUN 18, Creatinine 1.31 H, Glucose 107 H, Magnesium 2.1, Total Bilirubin 1.0, AST 64 H, ALT 88 H, Alkaline Phosphatase 84 Imagings Data: CXR -mild b/l infiltrate Assessment and Plan - Problems (Diagnosis) (1) Pneumonia due to COVID-19 virus Current Visit: Yes Status: Acute (2) Sleep apnea Current Visit: Yes Status: Acute (3) ARF (acute renal failure) Current Visit: Yes Status: Acute (4) Respiratory failure with hypoxia Current Visit: Yes Status: Acute - Plan #Covid 19 pneumonia-with acute respiratory failure and hypoxia -continue O2 Continue CPAP or as needed Wean oxygen as tolerated. Initiate patient on ivermectin, and Decadron and zinc Starts anticoagulation with Lovenox # acute kidney injury-follow, expected to improve with treatment with of covid infection Avoid IV fluid for now Encourage p.o. intake # DVT prophylaxis-subcutaneous Lovenox Advanced directives-full code Discharge Plan: Home - Advance Directives Does patient have a Living Will: No Does patient have a Durable POA for Healthcare: No
[2020-11-06 01:37] VITALS: BMI 48.2
[2020-11-06] MEDS: IPRATROPIUM BROM 0.5MG/2.5ML NEB SCH ×4 (02:00→19:40)
[2020-11-06] MEDS: ALBUTEROL 2.5 MG/3 ML NEB SOL NEB SCH ×5 (04:00→19:40)
[2020-11-06] MEDS: ASPIRIN EC 81 MG TAB PO SCH (08:43)
[2020-11-06] MEDS: ZINC SULFATE 220 MG CAP PO SCH (08:43)
[2020-11-06] MEDS: FAMOTIDINE 20 MG TAB PO SCH ×2 (08:44→21:18)
[2020-11-06] MEDS: GUAIFENESIN 600 MG SA TAB PO SCH ×2 (08:44→21:18)
[2020-11-06] MEDS ORDERED: ASPIRIN EC 81 MG TAB PO SCH (09:00)
[2020-11-06] MEDS ORDERED: ENOXAPARIN 40 MG/0.4 ML SQ SCH (09:00)
[2020-11-06] MEDS ORDERED: dexAMETHasone 4 MG TAB PO SCH (09:00)
[2020-11-06] MEDS ORDERED: ATORVASTATIN 40 MG TAB PO SCH (09:00)
[2020-11-06] MEDS ORDERED: INFLUENZA VACCINE (for 3y+) 0.5 ML DOSE IMVAC ONE (09:00)
[2020-11-06] MEDS: IVERMECTIN 3 MG TABLET PO SCH (09:00)
--- NOTE | 2020-11-06 13:13 | EKG ---
Test Date: 2020-11-05 Test Time: 20:44:13 Belt Cutter: JAYDON MEASUREMENT RESULTS: Intervals: Rate: 100 TN: 144 QRSD: 90 QT: 328 QTc: 423 [place]: P: 24 TN: 144 QRS: 44 T: 24 INTERPRETIVE STATEMENTS: Normal sinus rhythm Possible Inferior infarct, age undetermined Cannot rule out Anterior infarct, age undetermined Abnormal ECG Compared to ECG 01/29/2020 23:25:47 No significant changes Electronically Signed On 11-06-20 13:12:28 [place] MACHINE OPERATOR by Girish Molina
[2020-11-06] MEDS: GUAIFENESIN/DM 5 ML UCUP PO PRN (15:29)
--- NOTE | 2020-11-06 17:09 | P.PN ---
Subjective Date of Service: 11/06/20 Chief Complaint: Shortness of breath Patient with shortness of breath with speaking, though his SaO2 remained greater than 90% at rest. Physical Examination - Vital Signs Temperature: 98.2 F Blood Pressure: 131/67 Pulse: 88 Respirations: 19 Pulse Ox (%): 96 - Physical Exam General: Alert, Mild distress Neck: JVD not distended Respiratory: Diminished Cardiovascular: No edema, Regular rate/rhythm, Normal S1 S2 Gastrointestinal: Soft and benign, Non-distended, No tenderness Musculoskeletal: No swelling, No tenderness Integumentary: No rashes, No erythema Neurological: Normal strength at 5/5 x4 extr, Cranial nerves 3-12 intact - Studies Laboratory Data (last 24 hrs) 11/06/20 05:22: Troponin I < 0.02 11/06/20 01:13: Troponin I < 0.02 11/05/20 20:35: PT 12.8 H, INR 1.11 11/05/20 20:35: WBC 4.00 L, Hgb 14.8, Hct 43.2, Plt Count 111 L 11/05/20 20:35: Sodium 140, Potassium 3.6, BUN 18, Creatinine 1.31 H, Glucose 107 H, Magnesium 2.1, Total Bilirubin 1.0, AST 64 H, ALT 88 H, Alkaline Phosphatase 84 Assessment And Plan - Current Problems (Diagnosis) (1) Pneumonia due to COVID-19 virus Current Visit: Yes Status: Acute (2) Respiratory failure with hypoxia Current Visit: Yes Status: Acute (3) Sleep apnea Current Visit: Yes Status: Acute - Plan Continue IV steroid. CPAP at night and during sleep. Patient not tolerating the hospital BiPAP. Vitamin-C and D supplementation, and zinc supplementation. Bronchodilators p.r.n. Incentive spirometry. Patient given a dose of Ivermectin. Eliquis for DVT prophylaxis. Reassess in am for possible discharge.
[2020-11-06] MEDS: ATORVASTATIN 40 MG TAB PO SCH (21:18)
[2020-11-06] MEDS: APIXABAN 5 MG TABLET PO SCH (21:18)
[2020-11-06] MEDS: dexAMETHasone 4 MG/ML VIAL IV SCH (21:19)
[2020-11-06] MEDS: MELATONIN 5 MG TABLET PO PRN (21:19)
[2020-11-07] MEDS: ALBUTEROL 2.5 MG/3 ML NEB SOL NEB SCH ×4 (01:50→20:05)
[2020-11-07] MEDS: IPRATROPIUM BROM 0.5MG/2.5ML NEB SCH ×4 (01:50→20:05)
[2020-11-07 04:15] LABS: Absolute Lymphocytes (CBC) 0.4 K/uL (0.7-4.9); Basophils % 0.1 % (0-1.3); Hematocrit 42.6 % (39.6-49.0); Lymphocytes % 9.7 % (15.3-44.8); MPV 8.3 fL (7.6-11.3); RBC Red Blood Cell Count 4.78 M/uL (4.33-5.43)
[2020-11-07 04:27] LABS: Albumin 3.4 g/dL (3.4-5.0); Bilirubin Total 0.9 mg/dL (0.2-1.0)
[2020-11-07] MEDS: ZINC SULFATE 220 MG CAP PO SCH (07:54)
[2020-11-07] MEDS: GUAIFENESIN 600 MG SA TAB PO SCH ×2 (07:54→20:17)
[2020-11-07] MEDS: FAMOTIDINE 20 MG TAB PO SCH ×2 (07:54→20:17)
[2020-11-07] MEDS: dexAMETHasone 4 MG/ML VIAL IV SCH ×2 (07:55→20:17)
[2020-11-07] MEDS: ASPIRIN EC 81 MG TAB PO SCH (07:55)
[2020-11-07] MEDS: APIXABAN 5 MG TABLET PO SCH ×2 (07:55→20:17)
[2020-11-07] MEDS: GUAIFENESIN/DM 5 ML UCUP PO PRN (16:33)
--- NOTE | 2020-11-07 18:33 | P.PN ---
Subjective Date of Service: 11/07/20 Chief Complaint: Shortness of breath Subjective: No new changes (doing ok, feels breathing is slightly better but remains tachypneic/tachycardic with minimal exertion, feeling dyspneic as well) Review of Systems 10-point ROS is otherwise unremarkable Physical Examination - Vital Signs Temperature: 99.2 F Blood Pressure: 125/61 Pulse: 95 Respirations: 26 Pulse Ox (%): 95 Assessment & Plan Physician Review Additional Text: Physical Exam General: Alert, Mild distress Pulm: Diminished bilaterally, otherwise clear CV: No edema, Regular rate/rhythm, Normal S1 S2 abd: Soft and benign, Non-distended, No tenderness Ext: No swelling, No tenderness Problem list Pneumonia due to COVID-19 virus Respiratory failure with hypoxia Obstructive sleep apnea Continue IV steroids CPAP at night and during sleep. Patient not tolerating the hospital BiPAP. Vitamin-C and D supplementation, and zinc supplementation. Bronchodilators p.r.n. Incentive spirometry. Patient given a dose of Ivermectin. Eliquis for DVT prophylaxis. still very symptomatic, will obtain CT chest to r/o PE given tachycardia and dyspnea no power at home for CPAP either Dispo: anticipate dc home tomorrow Time Spent Managing Pts Care (In Minutes): 35
[2020-11-07] MEDS: MELATONIN 5 MG TABLET PO PRN (20:16)
[2020-11-07] MEDS: ATORVASTATIN 40 MG TAB PO SCH (20:18)
[2020-11-08] MEDS: ALBUTEROL 2.5 MG/3 ML NEB SOL NEB SCH ×3 (02:00→13:50)
[2020-11-08] MEDS: IPRATROPIUM BROM 0.5MG/2.5ML NEB SCH ×3 (02:00→13:50)
[2020-11-08 04:03] LABS: Absolute Lymphocytes (CBC) 0.5 K/uL (0.7-4.9); Hematocrit 38.4 % (39.6-49.0); Lymphocytes % 7.5 % (15.3-44.8); MPV 8.2 fL (7.6-11.3); RBC Red Blood Cell Count 4.34 M/uL (4.33-5.43)
[2020-11-08 04:34] LABS: C-Reactive Protein 30.5 mg/L (<3.00); Potassium 4.1 mmol/L (3.5-5.1)
[2020-11-08] MEDS: GUAIFENESIN/DM 5 ML UCUP PO PRN (06:15)
[2020-11-08] MEDS: IVERMECTIN 3 MG TABLET PO SCH (07:25)
[2020-11-08] MEDS: ASPIRIN EC 81 MG TAB PO SCH (07:26)
[2020-11-08] MEDS: dexAMETHasone 4 MG/ML VIAL IV SCH (07:27)
[2020-11-08] MEDS: ZINC SULFATE 220 MG CAP PO SCH (07:27)
[2020-11-08] MEDS: GUAIFENESIN 600 MG SA TAB PO SCH (07:27)
[2020-11-08] MEDS: FAMOTIDINE 20 MG TAB PO SCH (07:27)
--- NOTE | 2020-11-08 08:06 | RAD REPORT ---
EXAM DESCRIPTION: CT - [facility] - 11/07/2020 10:37 pm CLINICAL HISTORY: sob COMPARISON: November 05, 2020 chest x-ray TECHNIQUE: Computed axial tomography of the chest was obtained. Contrast was not requested. All CT scans are performed using dose optimization technique as appropriate and may include automated exposure control or mA/KV adjustment according to patient size. FINDINGS: The evaluation of mediastinum, lyndon and vessels is limited secondary to lack of IV contras t administration. Mild to moderate bilateral ground-glass opacities. No mediastinal or hilar lymphadenopathy is seen. A pleural effusion is not present. No pericardial effusion. Gallstones without gallbladder wall thickening IMPRESSION: Mild to moderate bilateral ground-glass opacities may indicate Covid pneumonia.
[2020-11-08] MEDS ORDERED: APIXABAN 2.5 MG TABLET PO SCH (09:00)
[2020-11-08] MEDS ORDERED: METOPROLOL TAR 25 MG TAB PO ONE (09:55)
[2020-11-08 12:49] VITALS: TEMP 99.5
[2020-11-08 14:56] LABS: Thyroid Stimulating Hormone 0.724 uIU/mL (0.360-3.740)
[2020-11-08 14:59] VITALS: O2SAT 93
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
[2020-11-08 16:30] VITALS: BP 137/66
--- NOTE | 2020-11-08 16:46 | P.CNS ---
Date of Consult: 11/08/20 Reason for Consult: Galindo virus pneumonia Chief Complaint: Shortness of breath History of Present Illness: Patient is 60 years of age was diagnosed with galindo virus stick in came to the hospital because of shortness of breath on mild exertion associated with significant tachycardia has a history of sleep apnea at the time of my evaluation patient was not using oxygen he was on CPAP with adequate saturation on exertion he continues to have tachycardia and mild desaturation Allergies Penicillins Allergy (Mild, Verified 01/30/20 06:17) Hives Home Medications: Apixaban [Eliquis] 5 mg PO BID 30 Days #60 tablet 11/08/20 Metoprolol Succinate 25 mg PO DAILY 30 Days #30 tab.er.24h 11/08/20 predniSONE [Prednisone] 20 mg PO SEECOM #21 tablet 11/08/20 - Past Medical/Surgical History Diabetic: No -: Kidney cancer (has had kidney removed) -: kidney removal - Social History Alcohol use: No CD- Drugs: No Caffeine use: Yes Place of Residence: Home Review of Systems General: Weakness, Malaise Respiratory: Cough, Shortness of Breath Physical Examination Temp Pulse Resp BP Pulse Ox 99.5 F 101 H 26 H 137/66 93 11/08/20 16:00 11/08/20 16:00 11/08/20 16:00 11/08/20 16:00 11/08/20 16:00 General: Alert, In no apparent distress HEENT: Atraumatic Neck: Supple Respiratory: Clear to auscultation bilaterally Cardiovascular: No edema, Normal S1 S2 - Problems (1) Pneumonia due to COVID-19 virus Current Visit: Yes Status: Acute Plan: Patient is 60 years of age admitted with shortness of breath and tachycardia on exertion no prior history of coronary artery disease sees is to history of renal cancer status post nephrectomy patient's oxygenation is satisfactory on room air CT scan shows minimal changes he cardia on exertion was confirmed he will need an outpatient echo unable to do echocardiogram while in hospital due to lack of staff recommend discharging on a low-dose metoprolol continue with Decadron ivermectin full anticoagulation the possibility of pulmonary embolus/apparently he is at chronic bed tachycardia need to be evaluated by Cardiology as an outpatient was also arranged for him to have an echocardiogram blood pressure satisfactory labs reviewed patient only has 1 kidney
== END 2020-11-08 17:00 | disposition home or self-care (01) | DRG 177 ==
LOC: ER 17:22 → ERHOLD 11-06 00:24 → 4TH 11-06 07:31 → OBSVTOIN 11-06 12:06
PROVIDERS: ADMIT Internal Medicine; ATTEND Hospitalist
PROC: 5A09457 Assistance with Respiratory Ventilation, 24-96 Consecutive Hours, Continuous Positive Airway Pressure (ICD-10-PCS; principal; 2020-11-06)
DX: U07.1 COVID-19 (principal); J12.82 Pneumonia due to coronavirus disease 2019; J96.01 Acute respiratory failure with hypoxia; N17.9 Acute kidney failure, unspecified; G47.33 Obstructive sleep apnea (adult) (pediatric); Z88.0 Allergy status to penicillin; Z90.49 Acquired absence of other specified parts of digestive tract; Z79.82 Long term (current) use of aspirin; Z79.52 Long term (current) use of systemic steroids; Z79.899 Other long term (current) drug therapy
CPT/HCPCS: 36415; 71045; 71250; 80048; 80053; 80076; 82728; 82805; 83605; 83735; 83880; 84439; 84443; 84484; 85025; 85379; 85610; 86140; 87040; 87205; 93005; 94010; 94660; 94760; 96374; 99285; J1100; J1650; J8540

== ENCOUNTER 2020-11-09 19:57 | Inpatient (IN) | payer OTHER ==
[2020-11-09 20:52] VITALS: BMI 46.0
[2020-11-09] MEDS ORDERED: ONDANSETRON 4 MG/2 ML VIAL IV PRN (21:35)
[2020-11-09] MEDS ORDERED: MELATONIN 5 MG TABLET PO PRN (21:37)
[2020-11-09] MEDS ORDERED: METHYLPREDNISOLONE 125 MG INJ IV ONE (21:39)
[2020-11-09] MEDS: BENZONATATE 100 MG CAP PO PRN (22:24)
[2020-11-09 22:35] LABS: Absolute Lymphocytes (CBC) 0.6 K/uL (0.7-4.9); Basophils % 0.1 % (0-1.3); Hematocrit 40.5 % (39.6-49.0); Lymphocytes % 8.8 % (15.3-44.8); RBC Red Blood Cell Count 4.57 M/uL (4.33-5.43)
[2020-11-09 23:19] LABS: Ferritin 2787.4 ng/mL (26-388); Potassium 4.2 mmol/L (3.5-5.1)
--- NOTE | 2020-11-09 23:43 | P.HP ---
Certification for Inpatient Patient admitted to: Inpatient With expected LOS: >2 Midnights Patient will require the following post-hospital care: None Practitioner: I am a practitioner with admitting privileges, knowledge of patient current condition, hospital course, and medical plan of care. Services: Services provided to patient in accordance with Admission requirements found in Title 42 Section 412.3 of the Code of Federal Regulations Patient History Date of Service: 11/09/20 Reason for admission: COVID pneumonia History of Present Illness: 60-year-old male with history of sleep apnea and recent bass virus infection was admitted for hypoxia, dyspnea. Patient was discharged yesterday from the hospital as he was saturating well in labs have improved but deteriorated once he got home. Patient was not discharged on home oxygen, upon presentation to inpatient room patient saturations in the high 80s on room air, tolerating nasal cannula well this time. Patient is tachypneic, dyspneic at this time but only mildly so. Initial labs reveal significant increase in CRP level from 30-100 since discharge. Will admit for further management. Allergies Penicillins Allergy (Mild, Verified 01/30/20 06:17) Hives Home Medications: Apixaban [Eliquis] 5 mg PO BID 30 Days #60 tablet 11/08/20 Metoprolol Succinate 25 mg PO DAILY 30 Days #30 tab.er.24h 11/08/20 predniSONE [Prednisone] 20 mg PO SEECOM #21 tablet 11/08/20 - Past Medical/Surgical History Has patient received pneumonia vaccine in the past: No Diabetic: No -: Kidney cancer (has had kidney removed) -: sleep apnea -: left total nephrectomy Psychosocial/ Personal History: Patient lives alone - Social History Smoking Status: Never smoker Alcohol use: No CD- Drugs: No Caffeine use: Yes Place of Residence: Home Review of Systems General: Weakness, Malaise Respiratory: Cough, Shortness of Breath Physical Examination - Vital Signs Temperature: 97.9 F Blood Pressure: 138/78 Pulse: 94 Respirations: 20 Pulse Ox (%): 92 - Physical Exam General: Alert, In no apparent distress HEENT: Atraumatic, PERRLA, Mucous membr. moist/pink, EOMI, Sclerae nonicteric Neck: Supple, 2+ carotid pulse no bruit, No LAD, Without JVD or thyroid abnormality Respiratory: Clear to auscultation bilaterally, Normal air movement Cardiovascular: Regular rate/rhythm, Normal S1 S2 Gastrointestinal: Normal bowel sounds, No tenderness Musculoskeletal: No tenderness Integumentary: No rashes Neurological: Normal gait, Normal speech, Normal strength at 5/5 x4 extr, Normal tone, Normal affect Lymphatics: No axilla or inguinal lymphadenopathy - Studies Laboratory Data (last 24 hrs) 11/09/20 22:01: Sodium 140, Potassium 4.2, BUN 19 H, Creatinine 1.23, Glucose 119 H 11/09/20 22:01: WBC 7.20, Hgb 14.3, Hct 40.5, Plt Count 159 Assessment and Plan - Plan Assessment COVID-19 pneumonia with hypoxia Plan COVID-19 pneumonia with hypoxia: Continue with IV steroids, oral supplements, full-dose anticoagulation with Eliquis. Daily room air saturations, patient will likely need home oxygen at discharge. Pulmonology consult in place. Patient tolerating nasal cannula well this time although he is mildly tachypneic, CRP significantly elevated. Discharge Plan: Home Plan to discharge in: 48 Hours - Advance Directives Does patient have a Living Will: No Does patient have a Durable POA for Healthcare: No - Code Status/Comfort Care Code Status Assessed: Yes (FC) Critical Care: No Time Spent Managing Pts Care (In Minutes): 55
[2020-11-10 04:45] LABS: Absolute Lymphocytes (CBC) 0.4 K/uL (0.7-4.9); Basophils % 0.1 % (0-1.3); Hematocrit 41.4 % (39.6-49.0); Lymphocytes % 6.1 % (15.3-44.8); MPV 8.5 fL (7.6-11.3); RBC Red Blood Cell Count 4.61 M/uL (4.33-5.43)
[2020-11-10 05:17] LABS: Ferritin 2887.1 ng/mL (26-388); Magnesium 2.4 mg/dL (1.8-2.4); Potassium 4.6 mmol/L (3.5-5.1)
[2020-11-10] MEDS ORDERED: Remdesivir 200 MG in NA CHLORIDE 0.9% 250 ML IV ONE (06:22)
[2020-11-10 08:08] LABS: Bilirubin Direct 0.5 mg/dL (0-0.2); Bilirubin Total 1.3 mg/dL (0.2-1.0); Protein, Total 6.8 g/dL (6.4-8.2)
[2020-11-10] MEDS ORDERED: FUROSEMIDE 20 MG TABLET PO ONE (08:35)
[2020-11-10] MEDS ORDERED: METHYLPREDNISOLONE 40 MG INJ IV SCH (09:00)
[2020-11-10] MEDS ORDERED: ENOXAPARIN 40 MG/0.4 ML SQ SCH (09:00)
[2020-11-10] MEDS: ZINC SULFATE 220 MG CAP PO SCH (09:28)
[2020-11-10] MEDS: ASCORBIC ACID 500 MG TABLET PO SCH ×4 (09:28→21:05)
[2020-11-10] MEDS: THIAMINE HCL 100 MG TABLET PO SCH (09:28)
[2020-11-10] MEDS: ASPIRIN EC 81 MG TAB PO SCH (09:29)
[2020-11-10] MEDS: VITAMIN D 1000 UNIT TAB PO SCH (09:29)
[2020-11-10] MEDS: METOPROLOL XL 25 MG TAB PO SCH (09:29)
[2020-11-10] MEDS: APIXABAN 5 MG TABLET PO SCH ×2 (09:29→21:06)
--- NOTE | 2020-11-10 09:39 | RAD REPORT ---
EXAM DESCRIPTION: Chest Single View CLINICAL HISTORY: SOB COMPARISON: 11/07/2020 FINDINGS: Single frontal radiograph view of the chest. Cardiomediastinal silhouette: Cardiomegaly. Lungs: Patchy bilateral perihilar and bibasilar opacities. No pneumothorax or large effusion Bones: Degenerative change of the spine. Upper abdomen: No abnormality identified. IMPRESSION: 1. Patchy bilateral airspace opacities concerning for pneumonia. 2. Cardiomegaly. Electronically signed by: Alverto Vaughn 11/09/2020 10:29 PM [employer] Due to temporary technical issues with the PACS/Fluency reporting system, reports are being signed by the in house radiologists without review as a courtesy to insure prompt reporting. The interpreting radiologist is fully responsible for the content of the report.
[2020-11-10] MEDS ORDERED: LOPERAMIDE HCL 2 MG CAPSULE PO PRN (12:33)
--- NOTE | 2020-11-10 12:41 | P.PN ---
Subjective Date of Service: 11/10/20 Primary Care Provider: unknown Chief Complaint: COVID pneumonia Subjective: Other (Patient reports some improvement. Diarrhea noted.) Physical Examination - Vital Signs Temperature: 97.8 F Blood Pressure: 115/68 Pulse: 86 Respirations: 25 Pulse Ox (%): 88 - Studies Laboratory Data (last 24 hrs) 11/10/20 03:48: Total Bilirubin 1.3 H, AST 41 H, ALT 52, Alkaline Phosphatase 79 11/10/20 03:48: Sodium 138, Potassium 4.6, BUN 25 H, Creatinine 1.09, Glucose 156 H, Magnesium 2.4 11/10/20 03:48: WBC 7.40, Hgb 14.3, Hct 41.4, Plt Count 174 11/09/20 22:01: Sodium 140, Potassium 4.2, BUN 19 H, Creatinine 1.23, Glucose 119 H 11/09/20 22:01: WBC 7.20, Hgb 14.3, Hct 40.5, Plt Count 159 Assessment & Plan Discharge Plan: Home Plan to discharge in: 48 Hours Physician Review Additional Text: Physical exam: Patient alert, cooperative. Patient using his CPAP. Heart: Regular rate rhythm Lungs: Patient on CPAP. No significant distress noted Abdomen: Patient obese. Soft, nontender, nondistended Impression: Dyspnea secondary to bilateral COVID 19 pneumonia with hypoxia Diarrhea, etiology unknown Obstructive sleep apnea, uses CPAP at night Hypertension Mild dehydration Obesity, BMI 46.1 Plan: Dyspnea secondary to bilateral COVID 19 pneumonia with hypoxia: Patient readmitted. Continue with IV Solu-Medrol and supplementation. Discussed the possibility of initiating Remdesivirbut LFTs slightly elevated. Will hold off on this for now. Patient appears improved. Patient will likely require oxygen at discharge. Will arrange this for the patient. Patient is currently using 2-3 L. Will need to get his diarrhea better controlled. Will start lactobacillus and provide Imodium. Will check for C diff. Will discuss with pulmonology. Encourage facemask use, proning, and incentive spirometer. Anticipate improvement over the next 48 hr. Diarrhea, etiology unknown: Will send culture for evaluation. Will provide lactobacillus and Imodium. Obstructive sleep apnea, uses CPAP at night: Continue CPAP. Hypertension: Continue metoprolol. Mild dehydration: Encourage oral intake. Obesity, BMI 46.1: Lifestyle modification education provided. Time Spent Managing Pts Care (In Minutes): 55
--- NOTE | 2020-11-10 12:47 | P.PN ---
Subjective Date of Service: 11/10/20 Primary Care Provider: unknown Chief Complaint: COVID pneumonia Subjective: Improving (Patient is 60 years of age was recently discharged with bass virus infection came back again complaining of shortness of breath was hypoxic this time) Review of Systems General: Weakness Respiratory: Shortness of Breath Gastrointestinal: Nausea Physical Examination - Vital Signs Temperature: 97.8 F Blood Pressure: 115/68 Pulse: 86 Respirations: 25 Pulse Ox (%): 88 - Physical Exam General: Alert, Oriented x3 Respiratory: Clear to auscultation bilaterally, Diminished Cardiovascular: Normal S1 S2 Gastrointestinal: Normal bowel sounds, Soft and benign - Studies Laboratory Data (last 24 hrs) 11/10/20 03:48: Total Bilirubin 1.3 H, AST 41 H, ALT 52, Alkaline Phosphatase 79 11/10/20 03:48: Sodium 138, Potassium 4.6, BUN 25 H, Creatinine 1.09, Glucose 156 H, Magnesium 2.4 11/10/20 03:48: WBC 7.40, Hgb 14.3, Hct 41.4, Plt Count 174 11/09/20 22:01: Sodium 140, Potassium 4.2, BUN 19 H, Creatinine 1.23, Glucose 119 H 11/09/20 22:01: WBC 7.20, Hgb 14.3, Hct 40.5, Plt Count 159 Assessment & Plan - Problems (Diagnosis) (1) Pneumonia due to COVID-19 virus Current Visit: No Status: Acute Plan: Patient is 60 years of age recurrent admission from bass virus infection patient was hypoxic continue with oxygen he also has CPAP at home requiring minimal oxygen complains of tachycardia patient was recently discharged home on Eliquis and metoprolol of ordered a stat 2D echocardiogram recommend a V/Q scan he has had did tachycardia for quite some time minimal changes on his x-ray patient is not tachycardic possible discharge in 1 or 2 days continue with full anticoagulation
[2020-11-10] MEDS: LACTOBACILLUS/ACIDOPHILUS TAB PO SCH ×2 (13:19→21:05)
[2020-11-10] MEDS ORDERED: ACETAMINOPHEN 500 MG TAB PO PRN (20:26)
[2020-11-10] MEDS: METHYLPREDNISOLONE 125 MG INJ IV SCH (21:06)
[2020-11-11 04:47] LABS: Absolute Lymphocytes (CBC) 0.5 K/uL (0.7-4.9); Basophils % 0.2 % (0-1.3); Hematocrit 43.6 % (39.6-49.0); Lymphocytes % 4.5 % (15.3-44.8); MPV 8.8 fL (7.6-11.3); RBC Red Blood Cell Count 4.87 M/uL (4.33-5.43)
[2020-11-11 05:17] LABS: Bilirubin Direct 0.3 mg/dL (0-0.2); Bilirubin Total 0.8 mg/dL (0.2-1.0); C-Reactive Protein 49.4 mg/L (<3.00); Ferritin 2952.2 ng/mL (26-388); Protein, Total 6.9 g/dL (6.4-8.2)
[2020-11-11 05:18] LABS: Magnesium 2.4 mg/dL (1.8-2.4)
[2020-11-11] MEDS: APIXABAN 5 MG TABLET PO SCH ×2 (09:56→21:44)
[2020-11-11] MEDS: THIAMINE HCL 100 MG TABLET PO SCH (09:56)
[2020-11-11] MEDS: ASCORBIC ACID 500 MG TABLET PO SCH ×4 (09:56→21:44)
[2020-11-11] MEDS: ASPIRIN EC 81 MG TAB PO SCH (09:56)
[2020-11-11] MEDS: METOPROLOL XL 25 MG TAB PO SCH (09:56)
[2020-11-11] MEDS: ZINC SULFATE 220 MG CAP PO SCH (09:56)
[2020-11-11] MEDS: LACTOBACILLUS/ACIDOPHILUS TAB PO SCH ×3 (09:56→21:44)
[2020-11-11] MEDS: VITAMIN D 1000 UNIT TAB PO SCH (09:56)
[2020-11-11] MEDS: METHYLPREDNISOLONE 125 MG INJ IV SCH ×2 (10:00→21:49)
--- NOTE | 2020-11-11 10:03 | P.PN ---
Subjective Date of Service: 11/11/20 Primary Care Provider: unknown Chief Complaint: COVID pneumonia Subjective: Other (Patient did not sleep well last night. Still some shortness of breath noted) Physical Examination - Vital Signs Temperature: 97.3 F Blood Pressure: 107/58 Pulse: 76 Respirations: 20 Pulse Ox (%): 95 - Studies Laboratory Data (last 24 hrs) 11/11/20 03:51: Sodium 139, Potassium 4.0, BUN 32 H, Creatinine 1.13, Glucose 162 H, Magnesium 2.4, Total Bilirubin 0.8, AST 36, ALT 53, Alkaline Phosphatase 86 11/11/20 03:51: WBC 12.20 H D, Hgb 15.4, Hct 43.6, Plt Count 246 D Assessment & Plan Discharge Plan: Home Plan to discharge in: 48 Hours Physician Review Additional Text: Physical exam: Patient alert, cooperative. Patient using his CPAP. Heart: Regular rate rhythm Lungs: Patient on CPAP. No significant distress noted Abdomen: Patient obese. Soft, nontender, nondistended Impression: Dyspnea secondary to bilateral COVID 19 pneumonia with hypoxia Diarrhea, etiology unknown Obstructive sleep apnea, uses CPAP at night Hypertension Mild dehydration Obesity, BMI 46.1 Plan: Dyspnea secondary to bilateral COVID 19 pneumonia with hypoxia: Patient reports slight improvement but did not sleep well. Will change melatonin to scheduled. Continue to wean off oxygen. Patient uses CPAP at night. Continue with IV Solu-Medrol and supplementation. No Remdesivir due to elevated liver function. Diarrhea better. C diff pending. Continue with lactobacillus. Case discussed with pulmonology. Encourage facemask use, proning, and incentive spirometer. Anticipate improvement over the next 48 hr. Diarrhea, etiology unknown: Will send culture for evaluation. Continue lactobacillus and Imodium. Obstructive sleep apnea, uses CPAP at night: Continue CPAP. Hypertension: Continue metoprolol. Mild dehydration: Encourage oral intake. Obesity, BMI 46.1: Lifestyle modification education provided. Time Spent Managing Pts Care (In Minutes): 55
[2020-11-11] MEDS ORDERED: MELATONIN 5 MG TABLET PO SCH (10:15)
[2020-11-11 12:10] LABS: C.diff Antigen/Toxin Ag neg : Tox neg (NEG : NEG)
[2020-11-11] MEDS: BENZONATATE 100 MG CAP PO PRN (21:44)
[2020-11-12 05:03] LABS: Absolute Lymphocytes (CBC) 0.4 K/uL (0.7-4.9); Basophils % 0.3 % (0-1.3); Hematocrit 41.6 % (39.6-49.0); Lymphocytes % 4.1 % (15.3-44.8); MPV 8.9 fL (7.6-11.3); RBC Red Blood Cell Count 4.66 M/uL (4.33-5.43)
[2020-11-12 05:42] LABS: Albumin 2.8 g/dL (3.4-5.0); Bilirubin Direct 0.3 mg/dL (0-0.2); Bilirubin Total 0.7 mg/dL (0.2-1.0); C-Reactive Protein 16.8 mg/L (<3.00); Ferritin 2154.5 ng/mL (26-388); Magnesium 2.5 mg/dL (1.8-2.4); Potassium 4.4 mmol/L (3.5-5.1); Protein, Total 6.1 g/dL (6.4-8.2)
--- NOTE | 2020-11-12 07:27 | P.DS ---
Admission Date: 11/09/20 Discharge Date: 11/12/20 Primary Care Provider: Dr. Bush Disposition: ROUTINE DISCHARGE Discharge Condition: GOOD Reason for Admission: COVID pneumonia Consultations: Pulmonary-Dr. Flannery Procedures: COVID: Positive CXR: COMPARISON: 11/07/2020 FINDINGS: Single frontal radiograph view of the chest. Cardiomediastinal silhouette: Cardiomegaly. Lungs: Patchy bilateral perihilar and bibasilar opacities. No pneumothorax or large effusion Bones: Degenerative change of the spine. Upper abdomen: No abnormality identified. IMPRESSION: 1. Patchy bilateral airspace opacities concerning for pneumonia. 2. Cardiomegaly. Medical problem list: Dyspnea secondary to bilateral COVID 19 pneumonia with hypoxia Diarrhea, etiology unknown Obstructive sleep apnea, uses CPAP at night Hypertension Mild dehydration Obesity, BMI 46.1 Brief History of Present Illness: 60-year-old male with history of sleep apnea and recent bass virus infection was admitted for hypoxia, dyspnea. Patient was discharged recently from the hospital stable oxygen saturations but once home this declined. Patient was direct admitted for further evaluation and treatment. Upon presentation room-air saturations were in the high 80s. He tolerated nasal cannula well upon admission. Hospital Course: Patient was a direct admit due to dyspnea secondary to bilateral COVID 19 pneumonia with hypoxia. Patient had been recently discharge without oxygen due to his requirement at the time. Since being hospitalized the patient has improved. Patient also reported some diarrhea. C diff toxin negative. Diarrhea appears resolved. Shortness of breath improved. Patient has underlying obstructive sleep apnea. Patient uses CPAP at home. CRP significantly improved. Ferritin still high but slowly improving. At discharge patient able to ambulate well with oxygen. Currently using 2-3 L per nasal cannula. Patient received IV Solu-Medrol and supplementation. Remdesivir was not given due to his elevated liver function. At discharge patient without significant respiratory distress. Overall stable and improved. At discharge the patient will continue with home oxygen to maintain sats above 93%. Patient currently on 2-3 L. Patient will also continue with CPAP at night. Patient will need to contact his [employer] company to obtain a CPAP mask with oxygen bleed port. This can be done with the help of Pulmonary tomorrow. At discharge patient will continue with prednisone daily for 7 days then 1 pill once daily for 7 days. The patient will be provided Tessalon Perles 100 mg 3 times a day as needed for cough and Pro air 2 puffs 3 times a day as needed for shortness of breath. The patient will also continue with Eliquis 5 mg 1 pill twice daily due to risk of pulmonary embolism and DVT with COVID 19. The patient will also continue with vitamin supplementation including vitamin-C 500 mg 1 pill 3 times a day, vitamin-D 2000 units daily, thiamine 200 mg daily, melatonin 10 mg at bedtime, and zinc 220 mg 1 pill daily. Patient will continue with CDC guidelines on COVID 19 education and isolation. Patient will need to isolate for at least 10 days. Patient will continue with face mask use, social distancing, and hand washing. Recommend follow up with pulmonology this week to further monitor his care. Pulmonology will continue to wean him off oxygen and adjust medication. Education on Eliquis and medications will be provided. Recommend follow up with PCP in 1 week to follow up this hospitalization and continue his care. Patient with diarrhea. Etiology likely related to COVID 19. This appears improved. C diff toxin negative. Patient will continue with lactobacillus 3 times a day. Patient may take over the counter Imodium as needed. Patient with hypertension. This has remained stable. At discharge patient will continue with metoprolol XL 25 mg 1 pill daily. Recommend to maintain blood pressure less than 130/80. Recommend to monitor blood pressure daily. If blood pressure remains above 140/90 then he is to contact his PCP for further recommendation. Patient should have echocardiogram in the near future to further evaluate his hypertension. This can be done with the help of his PCP or with cardiology. Patient with obesity. BMI 46.1. Lifestyle modification education provided. Vital Signs/Physical Exam: Temp Pulse Resp BP Pulse Ox 97.2 F 81 16 128/69 96 11/12/20 04:00 11/12/20 04:00 11/12/20 04:00 11/12/20 04:00 11/12/20 04:00 General: Alert, In no apparent distress, Oriented x3, Cooperative HEENT: Atraumatic Neck: Supple Respiratory: Other (No resp. distress. Good air movement. On CPAP at night and NC during the day) Cardiovascular: Normal pulses, Regular rate/rhythm Gastrointestinal: Normal bowel sounds, No tenderness, No masses, No rebound, No guarding Integumentary: No tenderness/swelling Neurological: Normal speech, Normal strength at 5/5 x4 extr, Normal tone, Normal affect Laboratory Data at Discharge: WBC 10.20 K/uL (4.3-10.9) D 11/12/20 03:54 Hgb 14.5 g/dL (13.6-17.9) 11/12/20 03:54 Hct 41.6 % (39.6-49.0) 11/12/20 03:54 Plt Count 235 K/uL (152-406) 11/12/20 03:54 Sodium 139 mmol/L (136-145) 11/12/20 03:54 Potassium 4.4 mmol/L (3.5-5.1) 11/12/20 03:54 BUN 35 mg/dL (7-18) H 11/12/20 03:54 Creatinine 0.99 mg/dL (0.55-1.3) 11/12/20 03:54 Glucose 168 mg/dL (74-106) H 11/12/20 03:54 Magnesium 2.5 mg/dL (1.8-2.4) H 11/12/20 03:54 Total Bilirubin 0.7 mg/dL (0.2-1.0) 11/12/20 03:54 AST 33 U/L (15-37) 11/12/20 03:54 ALT 56 U/L (12-78) 11/12/20 03:54 Alkaline Phosphatase 88 U/L (45-117) 11/12/20 03:54 Home Medications: Apixaban [Eliquis] 5 mg PO BID 30 Days #60 tablet 11/08/20 Acidophilus/Bifido Longum [Lactobacillus Capsule] 1 pill PO TID #90 capsule 11/12/20 Albuterol Sulfate [Proair Hfa] 2 puff IH TID PRN #1 hfa.aer.ad 11/12/20 Ascorbic Acid [Vitamin C*] 500 mg PO TID #90 tablet 11/12/20 Benzonatate [Tessalon Perle*] 100 mg PO TID PRN #10 cap 11/12/20 Cholecalciferol (Vitamin D3) [Vitamin D 1000 Iu Tab*] 2,000 unit PO DAILY #60 tab 11/12/20 Melatonin 10 mg PO BEDTIME #30 capsule 11/12/20 Metoprolol Succinate 25 mg PO DAILY 30 Days #30 tab.er.24h 11/12/20 Thiamine HCl [Vitamin B-1*] 200 mg PO DAILY #60 tablet 11/12/20 Zinc Sulfate [Zinc Sulfate*] 220 mg PO DAILY #30 cap 11/12/20 predniSONE [Prednisone] 20 mg PO SEECOM #21 tablet 11/12/20 New Medications: Acidophilus/Bifido Longum [Lactobacillus Capsule] 1 pill PO TID #90 capsule Melatonin 10 mg PO BEDTIME #30 capsule Metoprolol Succinate 25 mg PO DAILY 30 Days #30 tab.er.24h predniSONE [Prednisone] 20 mg PO SEECOM #21 tablet Albuterol Sulfate [Proair Hfa] 2 puff IH TID PRN #1 hfa.aer.ad PRN Reason: Shortness Of Breath Benzonatate [Tessalon Perle*] 100 mg PO TID PRN #10 cap PRN Reason: Cough Thiamine HCl [Vitamin B-1*] 200 mg PO DAILY #60 tablet Ascorbic Acid [Vitamin C*] 500 mg PO TID #90 tablet Cholecalciferol (Vitamin D3) [Vitamin D 1000 Iu Tab*] 2,000 unit PO DAILY #60 tab Zinc Sulfate [Zinc Sulfate*] 220 mg PO DAILY #30 cap Physician Discharge Instructions: Patient was a direct admit due to dyspnea secondary to bilateral COVID 19 pneumonia with hypoxia. Patient had been recently discharge without oxygen due to his requirement at the time. Since being hospitalized the patient has improved. Patient also reported some diarrhea. C diff toxin negative. Diarrhea appears resolved. Shortness of breath improved. Patient has underlying obstructive sleep apnea. Patient uses CPAP at home. CRP significantly improved. Ferritin still high but slowly improving. At discharge patient able to ambulate well with oxygen. Currently using 2-3 L per nasal cannula. Patient received IV Solu-Medrol and supplementation. Remdesivir was not given due to his elevated liver function. At discharge patient without significant respiratory distress. Overall stable and improved. At discharge the patient will continue with home oxygen to maintain sats above 93%. Patient currently on 2-3 L. Patient will also continue with CPAP at night. Patient will need to contact his [employer] company to obtain a CPAP mask with oxygen bleed port. This can be done with the help of Pulmonary tomorrow. At discharge patient will continue with prednisone daily for 7 days then 1 pill once daily for 7 days. The patient will be provided Tessalon Perles 100 mg 3 times a day as needed for cough and Pro air 2 puffs 3 times a day as needed for shortness of breath. The patient will also continue with Eliquis 5 mg 1 pill twice daily due to risk of pulmonary embolism and DVT with COVID 19. The patient will also continue with vitamin supplementation including vitamin-C 500 mg 1 pill 3 times a day, vitamin-D 2000 units daily, thiamine 200 mg daily, melatonin 10 mg at bedtime, and zinc 220 mg 1 pill daily. Patient will continue with CDC guidelines on COVID 19 education and isolation. Patient will need to isolate for at least 10 days. Patient will continue with face mask use, social distancing, and hand washing. Recommend follow up with pulmonology this week to further monitor his care. Pulmonology will continue to wean him off oxygen and adjust medication. Education on Eliquis and medications will be provided. Recommend follow up with PCP in 1 week to follow up this hospitalization and continue his care. Patient with diarrhea. Etiology likely related to COVID 19. This appears improved. C diff toxin negative. Patient will continue with lactobacillus 3 times a day. Patient may take over the counter Imodium as needed. Patient with hypertension. This has remained stable. At discharge patient will continue with metoprolol XL 25 mg 1 pill daily. Recommend to maintain blood pressure less than 130/80. Recommend to monitor blood pressure daily. If blood pressure remains above 140/90 then he is to contact his PCP for further recommendation. Patient should have echocardiogram in the near future to further evaluate his hypertension. This can be done with the help of his PCP or with cardiology. Patient with obesity. BMI 46.1. Lifestyle modification education provided. Diet: AHA Activity: Ad tylor Time spent managing pt's care (in minutes): 55
[2020-11-12] MEDS: VITAMIN D 1000 UNIT TAB PO SCH (07:53)
[2020-11-12] MEDS: APIXABAN 5 MG TABLET PO SCH (07:53)
[2020-11-12] MEDS: ASPIRIN EC 81 MG TAB PO SCH (07:53)
[2020-11-12] MEDS: ZINC SULFATE 220 MG CAP PO SCH (07:54)
[2020-11-12] MEDS: LACTOBACILLUS/ACIDOPHILUS TAB PO SCH (07:54)
[2020-11-12] MEDS: ASCORBIC ACID 500 MG TABLET PO SCH (07:54)
[2020-11-12] MEDS: THIAMINE HCL 100 MG TABLET PO SCH (07:54)
[2020-11-12] MEDS: METOPROLOL XL 25 MG TAB PO SCH (08:00)
[2020-11-12] MEDS: METHYLPREDNISOLONE 125 MG INJ IV SCH (08:00)
[2020-11-12 08:03] VITALS: BP 117/61
[2020-11-12] MEDS ORDERED: METHYLPREDNISOLONE 40 MG INJ IV SCH (09:00)
[2020-11-12 09:21] VITALS: O2SAT 90
[2020-11-12 10:26] VITALS: TEMP 97.1
--- NOTE | 2020-11-13 09:33 | ECHO ---
HEIGHT: 5 ft 8 in WEIGHT: 303 lb 3.2 oz DATE OF STUDY: 11/10/[address]: Chao Flannery MD 2-DIMENSIONAL: YES M.MODE: YES DOPPLER: YES COLOR FLOW: YES TDS: YES PORTABLE: NO DEFINITY: NO BUBBLE STUDY: NO DIAGNOSIS: CONGESTIVE HEART FAILURE, SHORTNESS OF BREATH CARDIAC HISTORY: CATHERIZATION: NO SURGERY: NO PROSTHETIC VALVE: NO PACEMAKER: NO MEASUREMENTS (cm) DIASTOLIC (NORMALS) SYSTOLIC (NORMALS) IVSd 1.3 (0.6-1.2) LA Diam (1.9-4.0) LVEF 55-60% LVIDd 5.0 (3.5-5.7) LVIDs 3.1 (2.0-3.5) %FS 39% LVPWd 1.3 (0.6-1.2) Ao Diam 2.9 (2.0-3.7) 2 DIMENSIONAL ASSESSMENT: RIGHT ATRIUM: NORMAL LEFT ATRIUM: NORMAL RIGHT VENTRICLE: NORMAL LEFT VENTRICLE: NORMAL TRICUSPID VALVE: NORMAL MITRAL VALVE: NORMAL PULMONIC VALVE: NORMAL AORTIC VALVE: NORMAL PERICARDIAL EFFUSION: NONE AORTIC ROOT: NORMAL LEFT VENTRICULAR WALL MOTION: NORMAL DOPPLER/COLOR FLOW: SEE BELOW. COMMENTS: NORMAL LEFT VENTRICULAR EJECTION FRACTION 55-60% WITH NORMAL WALL MOTION. DIASTOLIC DYSFUNCTION. TRACE MITRAL REGURGITATION. TECHNOLOGIST: Rodríguez TREVINO/ Guillermina CONKLIN
== END 2020-11-12 11:35 | disposition home or self-care (01) | DRG 177 ==
LOC: 4TH 19:57
PROVIDERS: ADMIT Family Medicine; ATTEND Family Medicine
PROC: 5A09457 Assistance with Respiratory Ventilation, 24-96 Consecutive Hours, Continuous Positive Airway Pressure (ICD-10-PCS; principal; 2020-11-09)
DX: U07.1 COVID-19 (principal); J12.82 Pneumonia due to coronavirus disease 2019; Q60.0 Renal agenesis, unilateral; C64.9 Malignant neoplasm of unspecified kidney, except renal pelvis; Z68.42 Body mass index [BMI] 45.0-49.9, adult; E66.9 Obesity, unspecified; G47.33 Obstructive sleep apnea (adult) (pediatric); I10 Essential (primary) hypertension; E86.0 Dehydration; R09.02 Hypoxemia; R00.0 Tachycardia, unspecified; R79.89 Other specified abnormal findings of blood chemistry; Z60.2 Problems related to living alone; Z79.01 Long term (current) use of anticoagulants; Z79.52 Long term (current) use of systemic steroids; Z79.899 Other long term (current) drug therapy; Z85.528 Personal history of other malignant neoplasm of kidney; Z88.0 Allergy status to penicillin; Z90.49 Acquired absence of other specified parts of digestive tract
CPT/HCPCS: 36415; 71045; 80048; 80076; 82728; 83735; 85025; 86140; 87045; 87046; 87177; 87209; 87324; 87449; 89055; 93306; 94660; J2920; J2930

== ENCOUNTER 2023-05-25 13:18 | Emergency (ER) | payer OTHER ==
--- OUTSIDE RECORDS SUMMARY | 2023-05-25 13:22 | XMS REPORT | Continuity of Care Document ---
:[address] [facility] t Address [address] [place] [address] [place] [id number] Care Team Providers Name Role Phone PADMINI TILLMAN Attending Clinician Unavailable Payers Payer Name Policy Type Policy Number Effective Date Expiration Date S liu GUALLPA OPEN [id number] 2022 00:00:00 ACCESS/OPEN ACCESS PLUS Problems This patient has no known problems. Allergies, Adverse Reactions, Alerts This patient has no known allergies or adverse reactions. Medications This patient has no known medications. Procedures This patient has no known procedures. Encounters Start End Encounter Admission Attending Care Care Encounter Source Date/Time Date/Time Type Type Clinicians Facility Department ID 2023-08-13 2023-08-13 Outpatient [facility] [id number] [place] 16:00:00 16:00:00 [facility] Results This patient has no known results.
--- NOTE | 2023-05-25 13:50 | RAD REPORT ---
EXAM DESCRIPTION: RAD - Chest Single View - 05/25/2023 1:42 pm CLINICAL HISTORY: DYSPNEA COMPARISON: <Comparisons> FINDINGS: Lines: None. Lungs: No evidence of edema or pneumonia. Pleural: No significant pleural effusions or pneumothorax. Cardiac: Mild cardiomegaly. Mediastinum: Within normal limits. Bones: No acute fractures. Other: None IMPRESSION: No acute cardiopulmonary disease.
[2023-05-25 13:58] LABS: Hematocrit 49.2 % (39.6-49.0); Lymphocytes % 11.9 % (15.3-44.8); MCV 90.2 fL (80-100); MPV 7.9 fL (7.6-11.3); Platelets 150 thou/uL (152-406); RBC Red Blood Cell Count 5.45 M/uL (4.33-5.43)
[2023-05-25 13:59] LABS: Protime INR 1.12
[2023-05-25 14:16] LABS: Albumin 3.7 g/dL (3.4-5.0); Bilirubin Direct 0.2 mg/dL (0-0.2); Bilirubin Indirect, Calculated 0.6 mg/dL (0.2-0.8); Bilirubin Total 0.8 mg/dL (0.2-1.0); Magnesium 2.1 mg/dL (1.6-2.4); Potassium 3.9 mEq/L (3.5-5.1); Protein, Total 7.1 g/dL (6.4-8.2); Troponin High Sensitivity 10.8 pg/mL (<58.9)
--- NOTE | 2023-05-25 14:38 | RAD REPORT ---
EXAM DESCRIPTION: US - Extrem Venous W Compress Chandana - 05/25/2023 2:33 pm CLINICAL HISTORY: PAIN COMPARISON: No comparisons TECHNIQUE: Real-time sonographic evaluation of the lower extremity deep venous systems was performed using color Doppler, grayscale, and compression. FINDINGS: Bilateral lower extremities. Normal compressibility, flow augmentation, phasic flow and spontaneous flow is identified in both the left and right lower extremity deep venous systems. No intraluminal filling defects seen. IMPRESSION: No DVT in either lower extremity.
--- NOTE | 2023-05-25 15:09 | RAD REPORT ---
EXAM DESCRIPTION: CT - Chest For Pe Angio - 05/25/2023 2:40 pm CLINICAL HISTORY: DYSPNEA COMPARISON: Thorax Wo Con dated 11/07/2020 TECHNIQUE: Dynamically enhanced axial 3 mm thick images of the chest were obtained during administra tion of <100> mL Isovue 370 IV contrast. Coronal and oblique reconstruction images were generated and reviewed. Exam utilizes a protocol for optimal evaluation of pulmonary arterial tree. Maximum intensity projections 3D imaging was utilized All CT scans are performed using dose optimization technique as appropriate and may include automated exposure control or mA/KV adjustment according to patient size. FINDINGS: Chest Wall: No suspicious thyroid nodules or pathologic lymphadenopathy. Lungs: Faint ground-glass opacities present in the right upper lobe only. Remaining lungs are clear. No suspicious for nodules. Pleura: No significant effusions or pneumothorax. Mediastinum/lyndon: No pathologic lymphadenopathy. Pulmonary arteries/Aorta: No filling defect identified. No aortic aneurysm. Heart: No significant pericardial effusion. Normal heart size. Upper abdomen: No acute abnormality.Cholelithiasis without CT evidence of acute cholecystitis. Bones: No acute abnormality. Bridging osteophytes in the spine. IMPRESSION: Negative for pulmonary embolism. Faint right upper lobe ground-glass opacities consisten t with either infection or inflammation.
--- NOTE | 2023-05-25 15:39 | EDPHYS ---
Physician Documentation [facility] Name: Domo Castro Age: 62 yrs Sex: Male : 1960 Arrival Date: 05/25/2023 Time: 13:18 Bed 4 Private MD: ED Physician Rylan Velazquez HPI: 05/25 14:17 This 62 yrs old Male presents to ER via Wheelchair with complaints of Shortness Of sp3 Breath, Choked/Choking. 14:17 62-year-old male with history of renal cancer with left nephrectomy, hypertension with sp3 also partial vocal cord paralysis as diagnosed by his ENT doctor presents to the ED with chief complaint difficulty with secretions, rhinorrhea and possible aspiration. Patient states that he was around his grandson who likely had a viral upper respiratory infection and subsequent to that he has had similar symptoms. He has a hard time with his secretions due to having a decreased cough reflex and he is concerned about his multiple episodes of recent cough and throat pain and spasm. He feels that this is all due to the URI. He denies any fever, productive cough, chest pain, back pain, focal neurological deficit, or any other signs or symptoms on ROS at this time. Patient initially went to urgent care who then gave him IM steroids for his URI symptoms and then sent him here for further evaluation stating he may need a work-up for PE. Incidentally patient also has mild complaints of bilateral leg and groin pain but is very mild in nature.. Historical: - Allergies: 14:14 PENICILLINS; kc6 - PMHx: 14:14 kidney CA-kidney removed; Hypertensive disorder; kc6 - Immunization history:: Adult Immunizations unknown. - Social history:: Smoking status: unknown. ROS: 14:19 Constitutional: Negative for fever, chills, and weight loss, Eyes: Negative for injury, sp3 pain, redness, and discharge, Neck: Negative for injury, pain, and swelling, Cardiovascular: Negative for chest pain, palpitations, and edema, Respiratory: Negative for shortness of breath, cough, wheezing, and pleuritic chest pain, Abdomen/GI: Negative for abdominal pain, nausea, vomiting, diarrhea, and constipation, Back: Negative for injury and pain, MS/Extremity: Negative for injury and deformity, Skin: Negative for injury, rash, and discoloration, Neuro: Negative for headache, weakness, numbness, tingling, and seizure, Psych: Negative for depression, anxiety, suicide ideation, homicidal ideation, and hallucinations, Allergy/Immunology: Negative for hives, rash, and allergies, Endocrine: Negative for neck swelling, polydipsia, polyuria, polyphagia, and marked weight changes, Hematologic/Lymphatic: Negative for swollen nodes, abnormal bleeding, and unusual bruising. 14:19 All other systems are negative. Exam: 14:19 Constitutional: This is a well developed, well nourished patient who is awake, alert, sp3 and in no acute distress. Head/Face: Normocephalic, atraumatic. Eyes: Pupils equal round and reactive to light, extra-ocular motions intact. Lids and lashes normal. Conjunctiva and sclera are non-icteric and not injected. Cornea within normal limits. Periorbital areas with no swelling, redness, or edema. Neck: Trachea midline, no thyromegaly or masses palpated, and no cervical lymphadenopathy. Supple, full range of motion without nuchal rigidity, or vertebral point tenderness. No Meningismus. Chest/axilla: Normal chest wall appearance and motion. Nontender with no deformity. No lesions are appreciated. Cardiovascular: Regular rate and rhythm with a normal S1 and S2. No gallops, murmurs, or rubs. Normal PMI, no JVD. No pulse deficits. Abdomen/GI: Soft, non-tender, with normal bowel sounds. No distension or tympany. No guarding or rebound. No evidence of tenderness throughout. Back: No spinal tenderness. No costovertebral tenderness. Full range of motion. Skin: Warm, dry with normal turgor. Normal color with no rashes, no lesions, and no evidence of cellulitis. MS/ Extremity: Pulses equal, no cyanosis. Neurovascular intact. Full, normal range of motion. Neuro: Awake and alert, GCS 15, oriented to person, place, time, and situation. Cranial nerves II-XII grossly intact. Motor strength 5/5 in all extremities. Sensory grossly intact. Cerebellar exam normal. Normal gait. Psych: Awake, alert, with orientation to person, place and time. Behavior, mood, and affect are within normal limits. 14:19 ECG was reviewed by the Attending Physician. EKG demonstrates sinus tachycardia at 104 bpm with normal axis, normal intervals, normal axis ST segments without evidence of acute ischemia. Vital Signs: 14:14 BP 153 / 62; Pulse 95; Resp 20 S; Pulse Ox 95% on R/A; kc6 15:08 BP 153 / 76; Pulse 100; Resp 20 S; Pulse Ox 94% on R/A; kc6 16:36 BP 150 / 73; Pulse 101; Resp 20 S; Pulse Ox 96% on R/A; kc6 MDM: 13:29 Patient medically screened. sp3 14:20 Data reviewed: vital signs, nurses notes, lab test result(s), radiologic studies. ED sp3 course: 62-year-old male with symptoms of possible aspiration secondary to partial vocal cord paralysis at baseline coupled with vague symptoms of cough/shortness of breath and leg cramps. Will obtain work-up that will include laboratory values, EKG, CT PE protocol and bilateral lower extremity ultrasounds. If work-up is negative, we will safely discharge patient home on OTC meds for Sudafed and follow-up to his ENT doctor as needed. Differential diagnosis includes upper respiratory infection, possible aspiration pneumonia, and to a much lower likelihood PE, ACS, among others.. 15:36 ED course: Ultrasounds demonstrate no blood clots or DVT. CT demonstrates no PE but sp3 does have pneumonia with groundglass opacities. We will treat with clindamycin for possible aspiration due to penicillin allergy and safely discharge patient home. Laboratory values demonstrate no significant abnormality. Patient follow-up PCP.. 05/25 13:29 Order name: Basic Metabolic Panel; Complete Time: 14:23 sp3 05/25 13:29 Order name: CBC with Diff; Complete Time: 14:23 sp3 05/25 13:29 Order name: LFT's; Complete Time: 14:23 sp3 05/25 13:29 Order name: Magnesium; Complete Time: 14:23 sp3 05/25 13:29 Order name: PT-INR; Complete Time: 14:23 sp3 05/25 13:29 Order name: Troponin HS; Complete Time: 14:23 sp3 05/25 15:33 Order name: Blood Culture Adult (2) sp3 05/25 13:29 Order name: XRAY Chest (1 view); Complete Time: 14:23 sp3 05/25 13:29 Order name: CT Chest For PE Angio; Complete Time: 15:32 sp3 05/25 13:29 Order name: US Extremity Venous W Compression Chandana; Complete Time: 15:32 sp3 05/25 13:29 Order name: EKG; Complete Time: 13:30 sp3 05/25 13:29 Order name: Cardiac monitoring; Complete Time: 13:34 sp3 05/25 13:29 Order name: EKG - Nurse/Tech; Complete Time: 13:34 sp3 05/25 13:29 Order name: IV Saline Lock; Complete Time: 13:46 sp3 05/25 13:29 Order name: Labs collected and sent; Complete Time: 13:46 sp3 05/25 13:29 Order name: O2 Per Protocol; Complete Time: 13:34 sp3 05/25 13:29 Order name: O2 Sat Monitoring; Complete Time: 13:34 sp3 Administered Medications: 15:35 CANCELLED (Changed abx): levofloxacin IVPB 500 mg 100 ml IVPB once over 60 mins sp3 16:24 Drug: Clindamycin IVPB 900 mg Route: IVPB; Infused Over: 30 mins; Site: right forearm; kc6 16:57 Follow up: Response: No adverse reaction; IV Status: Completed infusion; IV Intake: [id number] Disposition Summary: 05/25/23 15:39 Discharge Ordered Location: Home sp3 Condition: Stable sp3 Diagnosis - Aspiration pneumonia sp3 Followup: sp3 - With: Private Physician - When: Upon discharge from the Emergency Department - Reason: Continuance of care Discharge Instructions: - Discharge Summary Sheet sp3 - Aspiration Pneumonia, Adult sp3 Forms: - Medication Reconciliation Form sp3 - Thank You Letter sp3 - Antibiotic Education sp3 - Prescription Opioid Use sp3 - Patient Portal Instructions sp3 - Leadership Thank You Letter sp3 Prescriptions: - Clindamycin HCl 300 mg Oral Capsule - take 1 capsule by ORAL route every 6 hours for 10 days; 40 capsule; Refills: 0, sp3 Product Selection Permitted Signatures: Dispatcher [employer] EDRylan Bansal MD MD sp3 Ashley Figueroa RN RN kc6 Corrections: (The following items were deleted from the chart) 14:20 14:17 62-year-old male with history of renal cancer with left nephrectomy, hypertension sp3 with also partial vocal cord paralysis as diagnosed by his ENT doctor presents to the ED with chief complaint difficulty with secretions, rhinorrhea and possible aspiration. Patient states that he was around his grandson who likely had a viral upper respiratory infection and subsequent to that he has had similar symptoms. He has a hard time with his secretions due to having a decreased cough reflex and he is concerned about his multiple episodes of recent cough and throat pain and spasm. He feels that this is all due to the URI. He denies any fever, productive cough, chest pain, back pain, focal neurological deficit, or any other signs or symptoms on ROS at this time.. sp3 15:35 15:33 levofloxacin IVPB 500 mg 100 ml IVPB once over 60 mins ordered. sp3 sp3
--- NOTE | 2023-05-25 15:39 | ER ---
Nurse's Notes [facility] Name: Domo Castro Age: 62 yrs Sex: Male : 1960 Arrival Date: 05/25/2023 Time: 13:18 Bed 4 Private MD: Diagnosis: Aspiration pneumonia Presentation: 05/25 13:27 Chief complaint: Chief complaint: Patient states: he has issues with choking for the iw past 15 years, he sometimes aspirates on his saliva or whatever his is drinking, today ot felt like his throat was closing up , he went to urgent care and he felt better after the steroid shot but then it got bad again. 14:00 Coronavirus screen: At this time, the client does not indicate any symptoms associated iw with coronavirus-19. Ebola Screen: Patient negative for fever greater than or equal to 101.5 degrees Fahrenheit, and additional compatible Ebola Virus Disease symptoms Patient denies exposure to infectious person. Patient denies travel to an Ebola-affected area in the 21 days before illness onset. No symptoms or risks identified at this time. 14:00 Method Of Arrival: Wheelchair iw 14:01 Initial Sepsis Screen: Does the patient meet any 2 criteria? No. Patient's initial iw sepsis screen is negative. Does the patient have a suspected source of infection? No. Patient's initial sepsis screen is negative. Risk Assessment: Do you want to hurt yourself or someone else? Patient reports no desire to harm self or others. Onset of symptoms. 14:01 Acuity: ADOLPH 3 iw Historical: - Allergies: 14:14 PENICILLINS; kc6 - PMHx: 14:14 kidney CA-kidney removed; Hypertensive disorder; kc6 - Immunization history:: Adult Immunizations unknown. - Social history:: Smoking status: unknown. Screenin:46 [facility] ED Fall Risk Assessment (Adult) History of falling in the last 3 months, kc6 including since admission No falls in past 3 months (0 pts) Confusion or Disorientation No (0 pts) Intoxicated or Sedated No (0 pts) Impaired Gait No (0 pts) Mobility Assist Device Used No (0 pt) Altered Elimination No (0 pt) Score/Fall Risk Level 0 - 2 = Low Risk. Abuse screen: Denies threats or abuse. Denies injuries from another. Nutritional screening: No deficits noted. Tuberculosis screening: No symptoms or risk factors identified. Assessment: 13:30 General: Appears in no apparent distress. comfortable, obese, Behavior is calm, kc6 cooperative, appropriate for age. Pain: Denies pain. Neuro: Level of Consciousness is awake, alert, obeys commands, Oriented to person, place, time, situation, Appropriate for age. Cardiovascular: Denies chest pain, Heart tones S1 S2 present Capillary refill < 3 seconds Rhythm is sinus tachycardia. Respiratory: Reports shortness of breath at rest on exertion Airway is patent Trachea midline Respiratory effort is even, unlabored, Respiratory pattern is symmetrical, tachypnea Breath sounds are clear bilaterally. GI: No signs and/or symptoms were reported involving the gastrointestinal system. : No signs and/or symptoms were reported regarding the genitourinary system. EENT: Reports difficulty swallowing. Derm: No signs and/or symptoms reported regarding the dermatologic system. Skin is intact, is healthy with good turgor, Skin is pink, warm \T\ dry. Musculoskeletal: No signs and/or symptoms reported regarding the musculoskeletal system. Circulation, motion, and sensation intact. Capillary refill < 3 seconds, Range of motion: intact in all extremities. 14:30 Reassessment: Patient appears in no apparent distress at this time. No changes from kc6 previously documented assessment. Patient and/or family updated on plan of care and expected duration. Pain level reassessed. Patient is alert, oriented x 3, equal unlabored respirations, skin warm/dry/pink. 15:13 Reassessment: Patient appears in no apparent distress at this time. Patient and/or hb family updated on plan of care and expected duration. Pain level reassessed. Patient is alert, oriented x 3, equal unlabored respirations, skin warm/dry/pink. 15:44 Reassessment: d/c pending blood culture collection and IV antibiotics. kc6 Vital Signs: 14:14 BP 153 / 62; Pulse 95; Resp 20 S; Pulse Ox 95% on R/A; kc6 15:08 BP 153 / 76; Pulse 100; Resp 20 S; Pulse Ox 94% on R/A; kc6 16:36 BP 150 / 73; Pulse 101; Resp 20 S; Pulse Ox 96% on R/A; kc6 ED Course: 13:22 Patient arrived in ED. ts1 13:28 Rylan Velazquez MD is Attending Physician. sp3 13:44 XRAY Chest (1 view) In Process Unspecified. EDMS 13:46 Ashley Figueroa, RN is Primary Nurse. kc6 13:46 Inserted saline lock: 20 gauge in left antecubital area, using aseptic technique. Blood kc6 collected. 13:47 Patient has correct armband on for positive identification. Bed in low position. Call kc6 light in reach. Side rails up X2. Adult w/ patient. Client placed on continuous cardiac and pulse oximetry monitoring. NIBP monitoring applied. skimmer reverberatory on. 14:01 Triage completed. iw 14:35 US Extremity Venous W Compression Chandana In Process Unspecified. EDMS 14:41 CT Chest For PE Angio In Process Unspecified. EDMS 17:02 No provider procedures requiring assistance completed. IV discontinued, intact, kc6 bleeding controlled, No redness/swelling at site. Pressure dressing applied. Administered Medications: 15:35 CANCELLED (Changed abx): levofloxacin IVPB 500 mg 100 ml IVPB once over 60 mins sp3 16:24 Drug: Clindamycin IVPB 900 mg Route: IVPB; Infused Over: 30 mins; Site: right forearm; kc6 16:57 Follow up: Response: No adverse reaction; IV Status: Completed infusion; IV Intake: [id number] Medication: 17:03 VIS not applicable for this client. kc6 Intake: 16:57 IV: 50ml; Total: 50ml. kc6 Outcome: 15:39 Discharge ordered by . sp3 17:02 Discharged to home ambulatory, with significant other. kc6 17:02 Condition: stable 17:02 Discharge instructions given to patient, Instructed on discharge instructions, follow up and referral plans. medication usage, Demonstrated understanding of instructions, follow-up care, medications, Prescriptions given X 1. 17:03 Patient left the ED. kc6 Signatures: Dispatcher [employer] EDMS Imani Gaston RN RN Roxanna Walker RN RN hb Patel, Setul, MD MD sp3 Ashley Figueroa RN RN kc6 Юлия Fernandez PAS PAS ts1 Corrections: (The following items were deleted from the chart) 14:01 13:27 Chief complaint: iw iw
[2023-05-25] MEDS ORDERED: CLINDAMYCIN 900MG/D5W 900 MG/50 ML IVPB IV ONE (15:55)
[2023-05-25 17:26] VITALS: BP 150/73; O2SAT 96
--- NOTE | 2023-05-27 16:52 | EKG ---
Test Date: 2023-05-25 Test Time: 13:32:18 Developer Analyst: FILIBERTO MEASUREMENT RESULTS: Intervals: Rate: 104 DE: 156 QRSD: 88 QT: 312 QTc: 410 [place]: P: 43 DE: 156 QRS: 100 T: 49 INTERPRETIVE STATEMENTS: Sinus tachycardia Rightward axis Low voltage QRS Borderline ECG Compared to ECG 11/05/2020 20:44:13 Right-axis deviation now present Low QRS voltage now present Sinus rhythm no longer present Myocardial infarct finding no longer present Electronically Signed On 05-27-23 16:45:47 CDT by Albino Mcdermott
== END 2023-05-25 17:03 | disposition home or self-care (01) ==
LOC: ER 13:18
DX: J69.0 Pneumonitis due to inhalation of food and vomit (principal); I10 Essential (primary) hypertension; Z88.0 Allergy status to penicillin
CPT/HCPCS: 96365; 93005 ×2; 87040 ×2; 85025; 80048; 36415; 83735; 85610; 80076; 84484; 71275; 71045; 93970; 99285; Q9967